=== PATIENT | male | born 1960 | race Caucasian/White ===

== ENCOUNTER 2017-11-24 23:02 | Inpatient (IN) | payer MEDICARE, OTHER ==
[~2017-11-24] VITALS: Ht 180.3 cm; Wt 106.3 kg
[2017-11-24] MEDS ORDERED: normal saline 1000ML IV soln IV ONE (23:25)
[2017-11-24] MEDS ORDERED: acetaminophen 325mg tablet PO ONE (23:30)
[2017-11-24] MEDS ORDERED: NO HOME MEDS (23:36)
[2017-11-25] VITALS (16 sets, daily range): BP systolic 107–159; BP diastolic 58–102
[2017-11-25 00:07] LABS: ALANINE AMINOTRANSFERASE 32 U/L (12-78); ALBUMIN 2.6 G/DL (3.4-5.0); ALBUMIN/GLOBULIN RATIO 0.7 (1.1-1.5); ALKALINE PHOSPHATASE 100 IU/L (46-116); ANION GAP 10 (8-16); ASPARTATE AMINO TRANSFERASE 23 U/L (10-37); BLOOD UREA NITROGEN 17 MG/DL (7-18); BUN/CREATININE RATIO 13.3 (5.4-32.0); CALCIUM 8.2 MG/DL (8.5-10.1); CHLORIDE 98 MMOL/L (99-107); CREATININE 1.28 MG/DL (0.60-1.10); GLUCOSE 219 MG/DL (70-104); MAGNESIUM 1.4 MG/DL (1.5-2.4); POTASSIUM 3.6 MMOL/L (3.5-5.1); SODIUM 134 MMOL/L (135-145); TOTAL CARBON DIOXIDE 26.3 MMOL/L (24-32); TOTAL PROTEIN 6.6 G/DL (6.4-8.2); eGFR 58 ML/MIN
[2017-11-25 00:09] LABS: INR 1.1 INR; PARTIAL THROMBOPLASTIN TIME 31 SECONDS (22-32); PROTHROMBIN TIME 11.4 SECONDS (9.0-12.0)
[2017-11-25 00:26] LABS: BASOPHILS # (AUTO) 0.1 X10'3 (0-0.2); EOSINOPHILS % (AUTO) 0 % (0-6); HEMATOCRIT 51.9 % (42.0-52.0); HEMOGLOBIN 17.8 g/dl (14.0-17.9); LYMPHOCYTES # (AUTO) 0.8 X10'3 (1.1-4.8); MEAN CORPUSCULAR HEMOGLOBIN 28.7 PG (27.0-31.0); MEAN CORPUSCULAR HGB CONC 34.2 % (33.0-36.5); MEAN CORPUSCULAR VOLUME 83.9 FL (78-98); MONOCYTES # (AUTO) 0.4 X10'3 (0-0.9); MONOCYTES % (AUTO) 2.9 % (2-12); NEUTROPHILS # (AUTO) 12.4 X10'3 (1.8-7.7); NEUTROPHILS % (AUTO) 90.1 % (42-75); PLATELET COUNT 199 X10'3 (140-440); RED BLOOD COUNT 6.19 X10'6 (4.70-6.10); RED CELL DISTRIBUTION WIDTH 12.6 % (11.5-14.5); WHITE BLOOD COUNT 13.7 X10'3 (4.5-11.0)
[2017-11-25] MEDS ORDERED: mag hydrox/Alum hydrox/simeth 30ml oral suspension PO PRN (00:45)
[2017-11-25] MEDS ORDERED: morphine 2 MG/ML inj. syringe IV PRN (00:45)
[2017-11-25] MEDS ORDERED: ondansetron/PF 4mg/2ml inj IV PRN ×2 (00:45→19:00)
[2017-11-25] MEDS ORDERED: MESSAGE TO PHARMACY PO ONE (00:50)
[2017-11-25] MEDS ORDERED: dextrose ORAL solution 15 GM/59 ML bottle PO PRN (00:50)
[2017-11-25] MEDS ORDERED: glucagon, human recombinant 1mg kit SUBCUT PRN (00:50)
[2017-11-25] MEDS ORDERED: dextrose 50%-water 50ml dispensing syringe IV PRN ×2 (00:50)
[2017-11-25 00:55] LABS: PLATELET ESTIMATE NORMAL; TOTAL CELLS COUNTED 100
[2017-11-25 01:14] LABS: HEMOGLOBIN A1C 9.4 % (4.5-6.2)
[2017-11-25] MEDS: normal saline 1000ml 1,000 ML IV SCH ×3 (01:26→13:55)
[2017-11-25] MEDS: piperacillin/tazo 3.375gm/50ml 50 ML IV SCH ×4 (02:18→21:26)
[2017-11-25] MEDS: insulin Lispro (HumaLOG) vial - multi-dose SQ SCH ×2 (07:48→12:12)
[2017-11-25] MEDS: morphine 2 MG/ML inj. syringe IV PRN ×2 (07:49→23:25)
[2017-11-25] MEDS ORDERED: magnesium Cl slow-release 64mg tablet PO PRN (09:45)
[2017-11-25] MEDS ORDERED: potassium Cl 20 mEq SR tablet PO PRN ×2 (09:45)
[2017-11-25] MEDS ORDERED: magnesium 4gm in 100ml NS 100 ML IV PRN (09:45)
[2017-11-25] MEDS ORDERED: potassium Cl 40MEQ/NS 500ml 500 ML IV PRN ×2 (09:45)
[2017-11-25 11:01] LABS: ALANINE AMINOTRANSFERASE 25 U/L (12-78); ALBUMIN 2.4 G/DL (3.4-5.0); ALBUMIN/GLOBULIN RATIO 0.6 (1.1-1.5); ALKALINE PHOSPHATASE 85 IU/L (46-116); ANION GAP 10 (8-16); ASPARTATE AMINO TRANSFERASE 18 U/L (10-37); BILIRUBIN,TOTAL 1.1 MG/DL (0.1-1.0); BLOOD UREA NITROGEN 14 MG/DL (7-18); CALCIUM 8.3 MG/DL (8.5-10.1); CHLORIDE 99 MMOL/L (99-107); CREATININE 1.17 MG/DL (0.60-1.10); GLUCOSE 207 MG/DL (70-104); MAGNESIUM 1.5 MG/DL (1.5-2.4); POTASSIUM 3.4 MMOL/L (3.5-5.1); SODIUM 134 MMOL/L (135-145); TOTAL CARBON DIOXIDE 25.2 MMOL/L (24-32); TOTAL PROTEIN 6.6 G/DL (6.4-8.2); eGFR 64 ML/MIN
[2017-11-25] MEDS ORDERED: acetaminophen 325mg tablet PO PRN (11:35)
[2017-11-25] MEDS ORDERED: ringers solution, lacted 1,000 ML IV ONE (11:35)
[2017-11-25] MEDS: acetaminophen 650mg rectal suppository RC PRN (12:28)
[2017-11-25] MEDS ORDERED: BUPIVAcaine/PF 2.5mg/ml (0.25%) 10ml vial ONE (12:54)
[2017-11-25] MEDS: heparin, porcine 5000 units/ml vial SQ SCH ×2 (14:00→21:25)
[2017-11-25] MEDS ORDERED: fentaNYL /PF 50mcg/ml 5ml ampule ONE (18:03)
[2017-11-25] MEDS ORDERED: sevoflurane 250ml liquid IH ONE (18:04)
[2017-11-25] MEDS ORDERED: rocuronium 10mg/ml inj IV ONE (18:05)
[2017-11-25] MEDS ORDERED: propofol inj 20 ML IV ONE (18:05)
[2017-11-25] MEDS ORDERED: ceFOXitin 1000 MG inj ONE ×2 (18:34)
[2017-11-25] MEDS ORDERED: ringers solution, lacted 1,000 ML IV SCH (18:57)
[2017-11-25] MEDS ORDERED: proCHLORperazine 10 MG/2 ml inj IV PRN (19:00)
[2017-11-25] MEDS ORDERED: meperidine/PF 25mg/ml syringe IV PRN ×3 (19:00)
[2017-11-25] MEDS ORDERED: morphine 4 MG/ML inj SYRINge IV PRN ×2 (19:00)
[2017-11-25] MEDS ORDERED: gentamicin 40 MG/1 ML inj ONE (19:12)
[2017-11-25] MEDS ORDERED: clindamycin phosphate 150mg/ml inj. ONE (19:12)
[2017-11-25] MEDS ORDERED: sugammadex 200mg/2ml injection IV ONE (19:24)
[2017-11-26] VITALS: BP 158/102
[2017-11-26 00:30] VITALS: BP 158/99
[2017-11-26] MEDS: piperacillin/tazo 3.375gm/50ml 50 ML IV SCH ×4 (02:33→19:43)
[2017-11-26] MEDS: normal saline 1000ml 1,000 ML IV SCH ×2 (02:34→15:10)
[2017-11-26 04:00] VITALS: BP 128/91
[2017-11-26] MEDS: morphine 2 MG/ML inj. syringe IV PRN ×4 (04:35→23:44)
[2017-11-26 05:58] LABS: BASOPHILS % (AUTO) 0.1 % (0-1); EOSINOPHILS # (AUTO) 0.1 X10'3 (0-0.9); EOSINOPHILS % (AUTO) 0.7 % (0-6); HEMATOCRIT 46.7 % (42.0-52.0); HEMOGLOBIN 16.2 g/dl (14.0-17.9); LYMPHOCYTES # (AUTO) 0.9 X10'3 (1.1-4.8); LYMPHOCYTES % (AUTO) 10.7 % (21-51); MEAN CORPUSCULAR HEMOGLOBIN 29.4 PG (27.0-31.0); MEAN CORPUSCULAR HGB CONC 34.8 % (33.0-36.5); MEAN CORPUSCULAR VOLUME 84.7 FL (78-98); MONOCYTES # (AUTO) 0.3 X10'3 (0-0.9); MONOCYTES % (AUTO) 3.8 % (2-12); NEUTROPHILS # (AUTO) 7.3 X10'3 (1.8-7.7); NEUTROPHILS % (AUTO) 84.7 % (42-75); PLATELET COUNT 167 X10'3 (140-440); RED BLOOD COUNT 5.51 X10'6 (4.70-6.10); RED CELL DISTRIBUTION WIDTH 12.6 % (11.5-14.5); WHITE BLOOD COUNT 8.6 X10'3 (4.5-11.0)
[2017-11-26 06:19] LABS: ALANINE AMINOTRANSFERASE 18 U/L (12-78); ALBUMIN 1.8 G/DL (3.4-5.0); ALBUMIN/GLOBULIN RATIO 0.4 (1.1-1.5); ALKALINE PHOSPHATASE 80 IU/L (46-116); ANION GAP 12 (8-16); ASPARTATE AMINO TRANSFERASE 24 U/L (10-37); BLOOD UREA NITROGEN 10 MG/DL (7-18); BUN/CREATININE RATIO 10.6 (5.4-32.0); CALCIUM 8.2 MG/DL (8.5-10.1); CHLORIDE 100 MMOL/L (99-107); CREATININE 0.94 MG/DL (0.60-1.10); GLUCOSE 192 MG/DL (70-104); SODIUM 136 MMOL/L (135-145); TOTAL CARBON DIOXIDE 23.7 MMOL/L (24-32); eGFR 82 ML/MIN
[2017-11-26 07:41] VITALS: BP 126/78
[2017-11-26] MEDS: heparin, porcine 5000 units/ml vial SQ SCH ×2 (07:58→19:44)
[2017-11-26] MEDS: acetaminophen 650mg rectal suppository RC PRN (07:58)
[2017-11-26 08:09] LABS: PLATELET ESTIMATE NORMAL; TOTAL CELLS COUNTED 100
[2017-11-26] MEDS: insulin Lispro (HumaLOG) vial - multi-dose SQ SCH ×2 (08:17→12:38)
[2017-11-26 12:00] VITALS: BP 115/76
[2017-11-26 18:00] VITALS: BP 138/87
[2017-11-26] MEDS: lactobacillus rhamnosus 10,000 MMU CELLS/CAPSULE PO SCH (19:43)
[2017-11-27] VITALS: BP 160/85
[2017-11-27] MEDS: piperacillin/tazo 3.375gm/50ml 50 ML IV SCH ×4 (01:54→19:05)
[2017-11-27] MEDS: normal saline 1000ml 1,000 ML IV SCH (01:54)
[2017-11-27] MEDS: morphine 2 MG/ML inj. syringe IV PRN ×5 (03:49→21:08)
[2017-11-27 04:00] VITALS: BP 148/94
[2017-11-27 06:15] LABS: BASOPHILS # (AUTO) 0.1 X10'3 (0-0.2); BASOPHILS % (AUTO) 1.1 % (0-1); EOSINOPHILS % (AUTO) 0.1 % (0-6); HEMATOCRIT 46.3 % (42.0-52.0); HEMOGLOBIN 15.9 g/dl (14.0-17.9); LYMPHOCYTES # (AUTO) 1.1 X10'3 (1.1-4.8); LYMPHOCYTES % (AUTO) 12.5 % (21-51); MEAN CORPUSCULAR HGB CONC 34.2 % (33.0-36.5); MEAN CORPUSCULAR VOLUME 84.8 FL (78-98); MEAN PLATELET VOLUME 8.8 FL (7.4-10.4); MONOCYTES # (AUTO) 0.5 X10'3 (0-0.9); NEUTROPHILS # (AUTO) 7.3 X10'3 (1.8-7.7); NEUTROPHILS % (AUTO) 80.3 % (42-75); PLATELET COUNT 194 X10'3 (140-440); RED BLOOD COUNT 5.46 X10'6 (4.70-6.10); RED CELL DISTRIBUTION WIDTH 12.7 % (11.5-14.5)
[2017-11-27 06:54] LABS: ALANINE AMINOTRANSFERASE 16 U/L (12-78); ALBUMIN 1.6 G/DL (3.4-5.0); ALBUMIN/GLOBULIN RATIO 0.4 (1.1-1.5); ALKALINE PHOSPHATASE 92 IU/L (46-116); ANION GAP 12 (8-16); ASPARTATE AMINO TRANSFERASE 18 U/L (10-37); BILIRUBIN,TOTAL 0.9 MG/DL (0.1-1.0); BLOOD UREA NITROGEN 13 MG/DL (7-18); BUN/CREATININE RATIO 15.5 (5.4-32.0); CALCIUM 8.4 MG/DL (8.5-10.1); CHLORIDE 102 MMOL/L (99-107); CREATININE 0.84 MG/DL (0.60-1.10); GLUCOSE 193 MG/DL (70-104); POTASSIUM 3.8 MMOL/L (3.5-5.1); SODIUM 138 MMOL/L (135-145); TOTAL PROTEIN 6.1 G/DL (6.4-8.2); eGFR > 90 ML/MIN
[2017-11-27 07:13] LABS: TOTAL CELLS COUNTED 100
[2017-11-27 07:15] VITALS: BP 154/101
[2017-11-27 07:15] LABS: PLATELET ESTIMATE NORMAL; TOXIC VACUOLATION FEW
[2017-11-27] MEDS: heparin, porcine 5000 units/ml vial SQ SCH ×2 (07:54→19:05)
[2017-11-27] MEDS: lactobacillus rhamnosus 10,000 MMU CELLS/CAPSULE PO SCH ×2 (07:54→19:05)
[2017-11-27] MEDS: insulin Lispro (HumaLOG) vial - multi-dose SQ SCH ×2 (08:03→17:53)
[2017-11-27 11:50] VITALS: BP 148/101
[2017-11-27] MEDS: potassium cl 20mEq in 1/2 NS 1,000 ML IV SCH ×2 (12:29→22:07)
[2017-11-27 19:00] VITALS: BP 153/109
[2017-11-27] MEDS: hydrALAZINE 20mg/ml inj. IV PRN (19:43)
[2017-11-28] VITALS: BP 155/93
[2017-11-28] MEDS: morphine 2 MG/ML inj. syringe IV PRN ×3 (01:06→11:37)
[2017-11-28] MEDS: piperacillin/tazo 3.375gm/50ml 50 ML IV SCH ×4 (01:11→20:06)
[2017-11-28] MEDS: potassium cl 20mEq in 1/2 NS 1,000 ML IV SCH ×2 (05:39→19:14)
[2017-11-28 06:06] LABS: BASOPHILS # (AUTO) 0.1 X10'3 (0-0.2); BASOPHILS % (AUTO) 0.7 % (0-1); EOSINOPHILS % (AUTO) 0.5 % (0-6); HEMATOCRIT 47.7 % (42.0-52.0); HEMOGLOBIN 15.9 g/dl (14.0-17.9); LYMPHOCYTES # (AUTO) 1.7 X10'3 (1.1-4.8); LYMPHOCYTES % (AUTO) 18.4 % (21-51); MEAN CORPUSCULAR HEMOGLOBIN 28.4 PG (27.0-31.0); MEAN CORPUSCULAR HGB CONC 33.2 % (33.0-36.5); MEAN CORPUSCULAR VOLUME 85.4 FL (78-98); MEAN PLATELET VOLUME 7.6 FL (7.4-10.4); MONOCYTES # (AUTO) 0.7 X10'3 (0-0.9); MONOCYTES % (AUTO) 7.7 % (2-12); NEUTROPHILS # (AUTO) 6.7 X10'3 (1.8-7.7); NEUTROPHILS % (AUTO) 72.7 % (42-75); PLATELET COUNT 286 X10'3 (140-440); RED BLOOD COUNT 5.59 X10'6 (4.70-6.10); RED CELL DISTRIBUTION WIDTH 13.8 % (11.5-14.5); WHITE BLOOD COUNT 9.3 X10'3 (4.5-11.0)
[2017-11-28 06:25] LABS: ALANINE AMINOTRANSFERASE 15 U/L (12-78); ALBUMIN 1.6 G/DL (3.4-5.0); ALBUMIN/GLOBULIN RATIO 0.4 (1.1-1.5); ALKALINE PHOSPHATASE 89 IU/L (46-116); ANION GAP 10 (8-16); ASPARTATE AMINO TRANSFERASE 15 U/L (10-37); BILIRUBIN,TOTAL 0.7 MG/DL (0.1-1.0); BLOOD UREA NITROGEN 12 MG/DL (7-18); CALCIUM 8.3 MG/DL (8.5-10.1); CHLORIDE 100 MMOL/L (99-107); CREATININE 0.92 MG/DL (0.60-1.10); GLUCOSE 213 MG/DL (70-104); POTASSIUM 3.6 MMOL/L (3.5-5.1); SODIUM 136 MMOL/L (135-145); TOTAL CARBON DIOXIDE 26.4 MMOL/L (24-32); eGFR 84 ML/MIN
[2017-11-28 07:10] VITALS: BP 167/104
[2017-11-28] MEDS: lactobacillus rhamnosus 10,000 MMU CELLS/CAPSULE PO SCH ×2 (07:27→20:06)
[2017-11-28] MEDS: heparin, porcine 5000 units/ml vial SQ SCH ×2 (07:28→20:07)
[2017-11-28] MEDS: insulin Lispro (HumaLOG) vial - multi-dose SQ SCH ×2 (10:22→13:20)
[2017-11-28 12:06] VITALS: BP 177/105
[2017-11-28] MEDS: hydrALAZINE 20mg/ml inj. IV PRN (14:55)
[2017-11-28 19:00] VITALS: BP 150/89
[2017-11-28] MEDS: HYDROcodone/acetaminophen 10/325mg tab PO PRN (19:35)
[2017-11-28] MEDS ORDERED: HYDROcodone/acetaminophen 10/325mg tab PO ONE (20:15)
[2017-11-29] VITALS: BP 146/86
[2017-11-29] MEDS: piperacillin/tazo 3.375gm/50ml 50 ML IV SCH ×4 (01:43→19:39)
[2017-11-29] MEDS: HYDROcodone/acetaminophen 10/325mg tab PO PRN ×4 (01:47→21:48)
[2017-11-29 05:18] LABS: BASOPHILS # (AUTO) 0.1 X10'3 (0-0.2); BASOPHILS % (AUTO) 0.8 % (0-1); EOSINOPHILS # (AUTO) 0.2 X10'3 (0-0.9); EOSINOPHILS % (AUTO) 2.3 % (0-6); HEMATOCRIT 46.5 % (42.0-52.0); HEMOGLOBIN 15.6 g/dl (14.0-17.9); LYMPHOCYTES # (AUTO) 2.1 X10'3 (1.1-4.8); LYMPHOCYTES % (AUTO) 20.8 % (21-51); MEAN CORPUSCULAR HEMOGLOBIN 28.6 PG (27.0-31.0); MEAN CORPUSCULAR HGB CONC 33.5 % (33.0-36.5); MEAN CORPUSCULAR VOLUME 85.5 FL (78-98); MEAN PLATELET VOLUME 7.3 FL (7.4-10.4); MONOCYTES # (AUTO) 0.6 X10'3 (0-0.9); MONOCYTES % (AUTO) 5.6 % (2-12); NEUTROPHILS # (AUTO) 7.2 X10'3 (1.8-7.7); NEUTROPHILS % (AUTO) 70.5 % (42-75); PLATELET COUNT 340 X10'3 (140-440); RED BLOOD COUNT 5.44 X10'6 (4.70-6.10); RED CELL DISTRIBUTION WIDTH 13.7 % (11.5-14.5); WHITE BLOOD COUNT 10.1 X10'3 (4.5-11.0)
[2017-11-29 05:32] LABS: ALANINE AMINOTRANSFERASE 14 U/L (12-78); ALBUMIN 1.5 G/DL (3.4-5.0); ALBUMIN/GLOBULIN RATIO 0.4 (1.1-1.5); ALKALINE PHOSPHATASE 80 IU/L (46-116); ANION GAP 7 (8-16); ASPARTATE AMINO TRANSFERASE 16 U/L (10-37); BILIRUBIN,TOTAL 0.6 MG/DL (0.1-1.0); BLOOD UREA NITROGEN 9 MG/DL (7-18); BUN/CREATININE RATIO 11.5 (5.4-32.0); CHLORIDE 101 MMOL/L (99-107); CREATININE 0.78 MG/DL (0.60-1.10); GLUCOSE 168 MG/DL (70-104); POTASSIUM 3.7 MMOL/L (3.5-5.1); SODIUM 137 MMOL/L (135-145); TOTAL CARBON DIOXIDE 28.7 MMOL/L (24-32); TOTAL PROTEIN 5.7 G/DL (6.4-8.2); eGFR > 90 ML/MIN
[2017-11-29] MEDS: potassium cl 20mEq in 1/2 NS 1,000 ML IV SCH ×3 (05:50→17:12)
[2017-11-29 06:57] VITALS: BP 120/74
[2017-11-29] MEDS: lactobacillus rhamnosus 10,000 MMU CELLS/CAPSULE PO SCH ×2 (07:50→19:45)
[2017-11-29] MEDS: heparin, porcine 5000 units/ml vial SQ SCH ×2 (07:53→19:45)
[2017-11-29] MEDS: insulin Lispro (HumaLOG) vial - multi-dose SQ SCH ×3 (08:56→18:51)
[2017-11-29] MEDS ORDERED: insulin glargine (Lantus) pen - multi-dose SQ ONE (11:05)
[2017-11-29 11:15] VITALS: BP 117/89
[2017-11-29 19:36] VITALS: BP 143/96
[2017-11-29] MEDS: insulin glargine (Lantus) pen - multi-dose SQ SCH (21:00)
[2017-11-30] VITALS: BP 108/76
[2017-11-30] MEDS: piperacillin/tazo 3.375gm/50ml 50 ML IV SCH ×4 (01:54→21:31)
[2017-11-30] MEDS: HYDROcodone/acetaminophen 10/325mg tab PO PRN ×4 (05:15→21:33)
[2017-11-30] MEDS: potassium cl 20mEq in 1/2 NS 1,000 ML IV SCH ×3 (05:15→21:29)
[2017-11-30 05:36] LABS: BASOPHILS # (AUTO) 0.2 X10'3 (0-0.2); BASOPHILS % (AUTO) 1.4 % (0-1); EOSINOPHILS # (AUTO) 0.2 X10'3 (0-0.9); EOSINOPHILS % (AUTO) 1.7 % (0-6); HEMATOCRIT 48.2 % (42.0-52.0); LYMPHOCYTES # (AUTO) 2.1 X10'3 (1.1-4.8); LYMPHOCYTES % (AUTO) 17.9 % (21-51); MEAN CORPUSCULAR HEMOGLOBIN 28.4 PG (27.0-31.0); MEAN CORPUSCULAR HGB CONC 33.3 % (33.0-36.5); MEAN CORPUSCULAR VOLUME 85.4 FL (78-98); MEAN PLATELET VOLUME 7.1 FL (7.4-10.4); MONOCYTES # (AUTO) 0.7 X10'3 (0-0.9); MONOCYTES % (AUTO) 6.4 % (2-12); NEUTROPHILS # (AUTO) 8.3 X10'3 (1.8-7.7); NEUTROPHILS % (AUTO) 72.6 % (42-75); PLATELET COUNT 391 X10'3 (140-440); RED BLOOD COUNT 5.64 X10'6 (4.70-6.10); WHITE BLOOD COUNT 11.5 X10'3 (4.5-11.0)
[2017-11-30 06:09] LABS: ALANINE AMINOTRANSFERASE 14 U/L (12-78); ALBUMIN 1.7 G/DL (3.4-5.0); ALBUMIN/GLOBULIN RATIO 0.4 (1.1-1.5); ALKALINE PHOSPHATASE 83 IU/L (46-116); ANION GAP 9 (8-16); ASPARTATE AMINO TRANSFERASE 22 U/L (10-37); BILIRUBIN,TOTAL 0.5 MG/DL (0.1-1.0); BLOOD UREA NITROGEN 7 MG/DL (7-18); BUN/CREATININE RATIO 9.2 (5.4-32.0); CALCIUM 8.4 MG/DL (8.5-10.1); CHLORIDE 100 MMOL/L (99-107); CREATININE 0.76 MG/DL (0.60-1.10); GLUCOSE 163 MG/DL (70-104); POTASSIUM 3.8 MMOL/L (3.5-5.1); SODIUM 136 MMOL/L (135-145); TOTAL CARBON DIOXIDE 26.9 MMOL/L (24-32); TOTAL PROTEIN 6.2 G/DL (6.4-8.2); eGFR > 90 ML/MIN
[2017-11-30 07:33] VITALS: BP 125/88
[2017-11-30] MEDS: lactobacillus rhamnosus 10,000 MMU CELLS/CAPSULE PO SCH ×2 (07:48→21:33)
[2017-11-30] MEDS: heparin, porcine 5000 units/ml vial SQ SCH ×2 (07:48→21:35)
[2017-11-30] MEDS: insulin Lispro (HumaLOG) vial - multi-dose SQ SCH ×3 (09:39→19:24)
[2017-11-30 11:19] VITALS: BP 148/96
[2017-11-30] MEDS: NUT.TX.IMPAIRED DIGEST FXN (Ensure Clear) 237 ML PO SCH (17:30)
[2017-11-30 19:00] VITALS: BP 128/74
[2017-11-30] MEDS: insulin glargine (Lantus) pen - multi-dose SQ SCH (22:57)
[2017-12-01] VITALS: BP 136/83
[2017-12-01] MEDS: piperacillin/tazo 3.375gm/50ml 50 ML IV SCH ×4 (01:53→21:16)
[2017-12-01 07:00] VITALS: BP 162/91
[2017-12-01] MEDS: NUT.TX.IMPAIRED DIGEST FXN (Ensure Clear) 237 ML PO SCH (07:30)
[2017-12-01] MEDS: lactobacillus rhamnosus 10,000 MMU CELLS/CAPSULE PO SCH ×2 (07:56→21:18)
[2017-12-01] MEDS: potassium cl 20mEq in 1/2 NS 1,000 ML IV SCH (07:57)
[2017-12-01] MEDS: heparin, porcine 5000 units/ml vial SQ SCH ×2 (07:58→21:18)
[2017-12-01] MEDS: HYDROcodone/acetaminophen 10/325mg tab PO PRN ×2 (08:00→19:06)
[2017-12-01] MEDS: insulin Lispro (HumaLOG) vial - multi-dose SQ SCH ×3 (10:21→19:09)
[2017-12-01 11:00] VITALS: BP 143/91
[2017-12-01 19:00] VITALS: BP 136/89
[2017-12-01] MEDS: insulin glargine (Lantus) pen - multi-dose SQ SCH (21:00)
[2017-12-02] VITALS: BP 147/94
[2017-12-02] MEDS: potassium cl 20mEq in 1/2 NS 1,000 ML IV SCH ×3 (01:45→23:06)
[2017-12-02] MEDS: piperacillin/tazo 3.375gm/50ml 50 ML IV SCH ×4 (02:32→20:03)
[2017-12-02] MEDS: HYDROcodone/acetaminophen 10/325mg tab PO PRN ×4 (02:34→19:03)
[2017-12-02 07:00] VITALS: BP 149/90
[2017-12-02] MEDS: NUT.TX.IMPAIRED DIGEST FXN (Ensure Clear) 237 ML PO SCH ×2 (07:30→17:21)
[2017-12-02] MEDS: heparin, porcine 5000 units/ml vial SQ SCH ×2 (08:25→20:03)
[2017-12-02] MEDS: lactobacillus rhamnosus 10,000 MMU CELLS/CAPSULE PO SCH ×2 (08:25→20:03)
[2017-12-02] MEDS: insulin Lispro (HumaLOG) vial - multi-dose SQ SCH ×2 (08:33→19:02)
[2017-12-02 11:00] VITALS: BP 129/84
[2017-12-02 19:00] VITALS: BP 131/70
[2017-12-02] MEDS: diatr meglu/diatrizoate 30ml oral sol.-(3 dose) bottle PO SCH (21:01)
[2017-12-02] MEDS: insulin glargine (Lantus) pen - multi-dose SQ SCH (21:04)
[2017-12-03] VITALS: BP 141/81
[2017-12-03] MEDS: piperacillin/tazo 3.375gm/50ml 50 ML IV SCH ×3 (01:52→13:26)
[2017-12-03] MEDS: HYDROcodone/acetaminophen 10/325mg tab PO PRN ×3 (03:33→20:53)
[2017-12-03 07:28] VITALS: BP 130/83
[2017-12-03] MEDS: NUT.TX.IMPAIRED DIGEST FXN (Ensure Clear) 237 ML PO SCH ×2 (07:30→17:30)
[2017-12-03] MEDS: diatr meglu/diatrizoate 30ml oral sol.-(3 dose) bottle PO SCH ×2 (07:37→09:14)
[2017-12-03] MEDS: lactobacillus rhamnosus 10,000 MMU CELLS/CAPSULE PO SCH ×2 (07:37→20:54)
[2017-12-03] MEDS: heparin, porcine 5000 units/ml vial SQ SCH ×2 (07:38→20:52)
[2017-12-03] MEDS: insulin Lispro (HumaLOG) vial - multi-dose SQ SCH ×2 (07:56→13:27)
[2017-12-03] MEDS: potassium cl 20mEq in 1/2 NS 1,000 ML IV SCH (08:43)
[2017-12-03] MEDS ORDERED: iohexol 300mg/ml 100ml inj. ONE (09:12)
[2017-12-03 11:49] VITALS: BP 130/93
[2017-12-03] MEDS: dextrose ORAL solution 15 GM/59 ML bottle PO PRN (17:19)
[2017-12-03 19:30] VITALS: BP 131/86
[2017-12-03] MEDS: insulin glargine (Lantus) pen - multi-dose SQ SCH (22:37)
[2017-12-04] VITALS: BP 134/76
[2017-12-04] MEDS: HYDROcodone/acetaminophen 10/325mg tab PO PRN ×4 (03:04→20:25)
[2017-12-04 04:00] VITALS: BP 132/80
[2017-12-04 07:00] VITALS: BP 129/86
[2017-12-04] MEDS: NUT.TX.IMPAIRED DIGEST FXN (Ensure Clear) 237 ML PO SCH (07:30)
[2017-12-04 07:38] LABS: BASOPHILS # (AUTO) 0.2 X10'3 (0-0.2); BASOPHILS % (AUTO) 1.7 % (0-1); EOSINOPHILS # (AUTO) 0.2 X10'3 (0-0.9); EOSINOPHILS % (AUTO) 2.2 % (0-6); HEMATOCRIT 46.4 % (42.0-52.0); HEMOGLOBIN 15.5 g/dl (14.0-17.9); LYMPHOCYTES # (AUTO) 2.2 X10'3 (1.1-4.8); LYMPHOCYTES % (AUTO) 19.1 % (21-51); MEAN CORPUSCULAR HEMOGLOBIN 28.4 PG (27.0-31.0); MEAN CORPUSCULAR HGB CONC 33.4 % (33.0-36.5); MEAN CORPUSCULAR VOLUME 84.9 FL (78-98); MONOCYTES # (AUTO) 0.5 X10'3 (0-0.9); MONOCYTES % (AUTO) 4.7 % (2-12); NEUTROPHILS # (AUTO) 8.3 X10'3 (1.8-7.7); NEUTROPHILS % (AUTO) 72.3 % (42-75); PLATELET COUNT 561 X10'3 (140-440); RED BLOOD COUNT 5.46 X10'6 (4.70-6.10); RED CELL DISTRIBUTION WIDTH 13.8 % (11.5-14.5); WHITE BLOOD COUNT 11.5 X10'3 (4.5-11.0)
[2017-12-04 07:48] LABS: ALBUMIN 2.1 G/DL (3.4-5.0); ANION GAP 9 (8-16); BLOOD UREA NITROGEN 11 MG/DL (7-18); BUN/CREATININE RATIO 13.1 (5.4-32.0); CALCIUM 8.9 MG/DL (8.5-10.1); CHLORIDE 102 MMOL/L (99-107); CREATININE 0.84 MG/DL (0.60-1.10); GLUCOSE 135 MG/DL (70-104); MAGNESIUM 1.9 MG/DL (1.5-2.4); POTASSIUM 4.2 MMOL/L (3.5-5.1); SODIUM 140 MMOL/L (135-145); TOTAL CARBON DIOXIDE 29.3 MMOL/L (24-32); eGFR > 90 ML/MIN
[2017-12-04] MEDS: lactobacillus rhamnosus 10,000 MMU CELLS/CAPSULE PO SCH ×2 (07:48→20:24)
[2017-12-04] MEDS: heparin, porcine 5000 units/ml vial SQ SCH ×2 (07:48→20:26)
[2017-12-04] MEDS: amox tr/potassium clavulanate 875/125mg TAB PO SCH ×2 (07:56→16:54)
[2017-12-04] MEDS: insulin Lispro (HumaLOG) vial - multi-dose SQ SCH ×3 (08:58→20:23)
[2017-12-04 11:57] VITALS: BP 117/75
[2017-12-04] MEDS: dextrose ORAL solution 15 GM/59 ML bottle PO PRN (16:57)
[2017-12-04 19:00] VITALS: BP 132/81
[2017-12-04] MEDS: insulin glargine (Lantus) pen - multi-dose SQ SCH (22:36)
[2017-12-05] VITALS: BP 117/75
[2017-12-05] MEDS: HYDROcodone/acetaminophen 10/325mg tab PO PRN (05:16)
[2017-12-05 07:45] VITALS: BP 120/92
[2017-12-05] MEDS: lactobacillus rhamnosus 10,000 MMU CELLS/CAPSULE PO SCH (09:02)
[2017-12-05] MEDS: heparin, porcine 5000 units/ml vial SQ SCH (09:03)
[2017-12-05] MEDS: amox tr/potassium clavulanate 875/125mg TAB PO SCH (09:05)
[2017-12-05] MEDS: insulin Lispro (HumaLOG) vial - multi-dose SQ SCH ×2 (09:13→13:27)
[2017-12-05 14:55] VITALS: BP 107/80
[2017-12-05] MEDS ORDERED: ACET-2144 PO (15:01)
[2017-12-05] MEDS ORDERED: IBUP-1985 PO (15:05)
== END 2017-12-05 15:45 | disposition home health service (06) | DRG 853 ==
LOC: ER 23:03 → ED HOLD 11-25 00:45 → SUR 3N 11-25 01:00 → PACU 11-25 19:02 → SUR 3N 11-25 20:40
PROVIDERS: ADMIT Internal Medicine; ATTEND Family Medicine
PROC: 0WJG4ZZ Inspection of Peritoneal Cavity, Percutaneous Endoscopic Approach (ICD-10-PCS; 2017-11-25)
PROC: 0WQF0ZZ Repair Abdominal Wall, Open Approach (ICD-10-PCS; 2017-11-25)
PROC: 0DTJ0ZZ Resection of Appendix, Open Approach (ICD-10-PCS; principal; 2017-11-25 18:04)
PROC: BW211ZZ Computerized Tomography (CT Scan) of Abdomen and Pelvis using Low Osmolar Contrast (ICD-10-PCS; 2017-12-03)
DX: A41.9 Sepsis, unspecified organism (principal); K35.32 Acute appendicitis with perforation, localized peritonitis, and gangrene, without abscess; K56.7 Ileus, unspecified; F15.10 Other stimulant abuse, uncomplicated; E11.65 Type 2 diabetes mellitus with hyperglycemia; G89.29 Other chronic pain; F17.210 Nicotine dependence, cigarettes, uncomplicated; J44.9 Chronic obstructive pulmonary disease, unspecified; K42.9 Umbilical hernia without obstruction or gangrene; L84 Corns and callosities; N21.0 Calculus in bladder; Z53.31 Laparoscopic surgical procedure converted to open procedure; Z71.51 Drug abuse counseling and surveillance of drug abuser
CPT/HCPCS: 36415; 71045; 74018; 74177; 80048; 80053; 82948; 83036; 83605; 83735; 83880; 84145; 85025; 85610; 85730; 87040; 87070; 88304; 93005; 99285; A4315; A6251; A6255; A6266; A7000; C9399; J0360; J0694; J1580; J1644; J1815; J2175; J2270; J2405; J2543; J2704; J3010; J3480; J3490; J7030; J7120; Q9963; Q9967

== ENCOUNTER 2021-12-23 03:56 | Emergency (ER) | payer MEDICARE, MEDICAID ==
[~2021-12-23] VITALS: Ht 180.3 cm; Wt 104.5 kg
[~2021-12-23 03:56] MED LIST: IBUP-1985 PO; NO HOME MEDS
[2021-12-23 04:06] VITALS: BP 185/98
== END 2021-12-23 06:54 | disposition left against medical advice (07) ==
LOC: ER 03:56
DX: R21 Rash and other nonspecific skin eruption (principal); Z53.21 Procedure and treatment not carried out due to patient leaving prior to being seen by health care provider

== ENCOUNTER 2024-08-27 19:50 | Inpatient (IN) | payer MEDICARE, MEDICAID ==
[~2024-08-27] VITALS: Ht 180.3 cm; Wt 87.0 kg
--- NOTE | 2024-08-27 20:02 | ELECTROCARDIOGRAPH REPORT ---
[facility] Test Date: 2024-08-27 Test Time: 19:58:49 Pat Name: CHELO BURGSO Department: EMERGENCY ROOM Room: Gender: M Supervisor [employer]: SANDRO : 1960 Requested By: BELGICA JUSTICE Order Number: [id number] Reading MD: Measurements Intervals [place] Rate: 89 P: 0 [place]: 0 QRS: 28 QRSD: 95 T: 29 QT: 394 QTc: 480 Interpretive Statements Atrial fibrillation Anterior infarct, old Borderline repolarization abnormality Please click the below link to view image of tracing.
--- NOTE | 2024-08-27 20:11 | Physician Documentation ---
History of Present Illness Chief Complaint: Abdominal Pain Stated Complaint: ABD PAIN Time Seen by MD: 19:57 Primary Medical Doctor: NONE Source: patient, EMS Mode of Arrival: EMS Exam Limitations: no limitations HPI 64-year-old male with generalized abdominal pain worsening over the past couple of days causing intermittent nausea without vomiting. Patient denies any fevers normal bowel movements. Patient does have history of multiple hernias being repaired as well as an appendectomy which caused chronic abdominal pain. Patient did have a primary care provider but has not seen in about a year. Patient had medications that he was on but noticed when he took some of the medications together they could cause side effects stopped taking medications in which case the primary care provider was not happy with an he has not been back since this was about a year and half ago. Patient lives at home with . Patient states that is some of his abdominal pain is alleviated with bowel movements but not every time. Medication Reconciliation Allergies: Coded Allergies: No Known Drug Allergies (Verified Allergy, Unknown, 08/27/24) Scheduled Ibuprofen (Ibuprofen), 1 TAB PO Q6H Miscellaneous Medications Home Med List (No Home Medications), (Reported) Past Medical History Past Medical History: *CARDIOVASCULAR*, *GI/HEPATOBILIARY*, Hernia, Diabetes Drug Use: methamphetamine Lives In: Home Occupation: retired Review of Systems All Other Systems at this time: Reviewed and Negative Gastrointestinal: Reports: see HPI, abdominal pain, nausea Physical Exam Vital Signs: RN Vital Signs have been reviewed: Yes, Temperature: 97.6, Source: Oral, Heart Rate: 87, Respiratory Rate: 14, BP: 139/93, Pulse Oximetry: 96, Weight: 87.000 Oxygen Flow Rate: 0 Physical Exam General: Alert, no apparent distress. HEENT: PERRL, EOMI, no injection, moist mucous membranes. Baseline asymmetry to mouth Neck: Full range of motion. Respiratory: Lungs clear, no respiratory distress. Chest: No accessory muscle use. Cardiovascular: Regular rate and rhythm, no murmurs. Gastrointestinal: Soft, nondistended bowel sounds present generalized abdominal tenderness does appear more near the umbilicus. No flank pain. Old midline abdominal scar Extremities: Normal range of motion, no deformity. Neurologic: Oriented x4. Psychiatric: Normal mood and affect. Skin: Normal color, warm and dry. No edema, no ecchymosis. Progress Results/Orders Results/Orders Orders - ELIZABETH FELDER NP Ct Abdomen Pelvis (08/27/24 19:57) Hs Troponin I W Calculations (08/27/24 19:57) BMP (08/27/24 19:57) Monitor (08/27/24 19:57) Nothing By Mouth (08/28/24 Dinner) Completed Orders - ELIZABETH FELDER NP Electrocardiogram (08/27/24 19:57) Vital Signs 08/27/24 19:53 Temp 97.6 Pulse 87 Resp 14 B/P (MAP) 139/93 Pulse Ox 96 O2 Flow Rate 0 Medical Decision Making Findings Due to nonspecific abdominal pain which has been chronic but increasing over the past couple of days of nausea. CT of abdomen as well as labs AFib noted by EMT EKG completed. Patient denies any chest pain or shortness of breath. CT shows an enlarged prostate and some bladder wall thickening awaiting urinalysis to evaluate for infection no obvious abdominal process noted to support patient's subjective generalized abdominal pain. Patient has had chronic pain. Hemoglobin 16 no elevation in white count. Elevated BUN and creatinine GFR 40 indicating some acute kidney injury with generalized abdominal pain bladder wall thickening an enlarged prostate fluids ordered Differential Dx:Considerations: Include: Angina/MD, Aortic dissection, Bowel obstruction, Cholelithasis, Constipation, Diverticular disease, Gastroenteritis, Inflammatory BD, Pancreatitis, Urinary tract infection Departure Disposition: ADMITTED INPATIENT Impression: Primary Impression: Acute kidney injury Additional Impressions: Dehydration Nausea Condition: Fair Referrals: NO PRIMARY CARE PROVIDER (PCP) Education Educated: Patient Educated regarding: diagnosis, treatment, need for follow up Signature Scribe Signature: No scribe Attestation: The note accurately reflects work and decisions made by me.Elizabeth Felder - MATERIALS MANAGEMENT MANAGER 08/27/24 20:12 ELIZABETH FELDER COMMERCIAL SUBCONTRACTOR Aug 27, 2024 20:11
--- NOTE | 2024-08-27 20:56 | RADIOLOGY REPORT ---
Exam: CT CT ABDOMEN PELVIS History: Abdominal Pain Comparison Study: None TECHNIQUE: Multidetector CT of the abdomen and pelvis was performed from lung bases to pubic symphysi s. Imaging was performed without IV contrast. Axial, coronal, and sagittal multiplanar reformats were obtained from the axial data set by the technologist. RADIATION DOSE: CTDI vol 21.1 mGy. DLP 1108. 98 mGy.cm Findings: Limited evaluation of the solid organs in the absence of IV contrast. Liver: Unremarkable. Spleen: Unremarkable. Pancreas: Unremarkable. Gallbladder: Unremarkable. Adrenals: 2.4 cm fat containing right adrenal lesion. Kidneys: Unremarkable. Pelvic Viscera: Mild prostatomegaly with indentation upon the posterior aspect of the urinary bladder . Mild wall thickening of the urinary bladder. Vasculature: Moderate aortoiliac atherosclerosis. Retroperitoneum: Unremarkable. Bowel: No bowel obstruction. Probable prior appendectomy. Musculoskeletal: Degenerative changes of the thoracolumbar spine. Soft tissues: Small ventral fat containing abdominal wall hernias. Lungs: The lung bases are clear. Impression: 1. Nonspecific mild wall thickening of the urinary bladder, cystitis cannot be excluded in the [facility] clinical setting. 2. Additional findings as detailed.
[2024-08-27 21:08] LABS: MEAN PLATELET VOLUME 8.2 FL (7.4-10.4); RED CELL DISTRIBUTION WIDTH 14.3 % (11.5-14.5)
[2024-08-27 21:39] LABS: CREATININE 1.70 MG/DL (0.60-1.10); TOTAL CARBON DIOXIDE 22.4 MMOL/L (24-32); eCRCL 46 ML/MIN; eGFR 41 ML/MIN
[2024-08-27 22:22] LABS: LEUKOCYTE ESTERASE ,URINE NEGATIVE (Neg); NITRITES, URINE NEGATIVE (Neg); OCCULT BLOOD,URINE NEGATIVE (Neg)
[2024-08-27] MEDS ORDERED: ondansetron/PF 4mg/2ml inj IV PRN (22:30)
[2024-08-27] MEDS ORDERED: potassium Cl 20 mEq SR tablet PO PRN ×2 (22:30)
[2024-08-27] MEDS ORDERED: HYDROcodone/acetaminophen 5mg/325mg tablet PO PRN (22:30)
[2024-08-27] MEDS ORDERED: potassium Cl 40MEQ/1/2NS 520ml 520 ML IV PRN (22:30)
[2024-08-27] MEDS ORDERED: magnesium sulf-water 4G/100mL 100 ML IV PRN (22:30)
[2024-08-27] MEDS ORDERED: mag hydrox/Alum hydrox/simeth 30ml oral suspension PO PRN (22:30)
[2024-08-27] MEDS ORDERED: magnesium sulf-water 2g/50mL 50 ML IV PRN (22:30)
[2024-08-27] MEDS ORDERED: magnesium Cl slow-release 64mg tablet PO PRN (22:30)
[2024-08-27 22:31] LABS: UA COLLECTION TYPE NON-SPECIFIED
[2024-08-27] MEDS: normal saline 1000ml 1,000 ML IV SCH (22:56)
[2024-08-27] MEDS: normal saline 1000ML IV soln IVB ONE (22:56)
--- NOTE | 2024-08-27 23:04 | HISTORY AND PHYSICAL-Residence ---
History & Physical Providers to CC Resident Creating Document: ROBYN HERNANDEZ, RES ~ History of Present Illness Primary Medical Doctor: NONE Reason for Admit\Complaint: Abdominal pain History of Present Illness This is a 64-year-old male with history of unspecified psychiatric disorder in the past presents to the ER with a chief complaint nausea, abdominal pain. Patient states that he has been having chronic nausea and abdominal pain since the last three years which got worse today. He rates his abdominal pain is 7/10 in the lower quadrant. He denies any burning in the urine or increased frequency of micturition. He has been dehydrated since the last one week due to the heat and was not drinking enough water nor has air conditioning at home. He denies any history of kidney disease, does not have a PCP. He has been evaluated for his nausea and abdominal pain three years ago when he was told at a secondary to a psychiatric problem. He denies fever, pain elsewhere, any other complaints. He endorses smoking methamphetamine, few months ago, quit now. He smokes about half pack now since two years but previously used to smoke one pack per day before that. He used to be a heavy alcohol user but quit three years ago. Allergies: Coded Allergies: No Known Drug Allergies (Verified Allergy, Unknown, 08/27/24) Home Medications Home Medications Active Ibuprofen 600 Mg Tablet 1 Tab PO Q6H Reported No Home Medications (Home Med List) Each Past Medical History Past Medical History Unspecified Psychiatric problems Past Surgical History Surgical History Comment Appendicectomy Past Social History Social History Comment He endorses smoking meth past few months ago, quit now. He smokes about half pack now since two years but previously used to smoke one pack per day before that. He used to be a heavy alcohol user but quit three years ago. Drug Use: Methamphetamine Lives In: Home Occupation: retired ROS All Other Systems: Reviewed and Negative ROS Reviewed in full and negative except for the pertinent positives in HPI Gastrointestinal: Reports: see HPI, abdominal pain, nausea Exam Vitals: Vital Signs Date Time Temp Pulse Resp B/P (MAP) Pulse Ox O2 Delivery O2 Flow Rate FiO2 08/27/24 20:30 92 18 130/100 (110) 97 0 08/27/24 19:53 97.6 General: General: well developed, well nourished. Awake , alert, and oriented x4, resting comfortably in the bed, in no acute distress . HEENT: Atraumatic, normocephalic, EOMI, anicteric sclera B; pink conjunctiva; PERRLA, normal oropharynx, moist oral and nasal mucosa. Tympanic membrane , nose , throat clear. Neck: Trachea midline. Supple, full range of motion, no JVD, bruit , hepatojugular reflex , lymphadenopathy or masses, or other lesions Cardiac: Regular rhythm, regular rate no murmurs, rubs, or gallops. Normal S1 and S2, no S3 noticed. PMI is normal. Respiratory: Equal breath sounds bilaterally, no tachypnea; lungs clear to auscultation bilaterally, no wheezing ,rub or rales, or crackles. Chest wall is symmetric and without deformity. No signs of trauma. Chest wall is nontender. No signs of respiratory distress. Resonance is normal upon percussion bilaterally. Gastrointestinal: Abdomen symmetric, non-distended, soft, tenderness to palpation in the lower abdomen, normal bowel sounds x4 quadrant, normoactive, no hepatosplenomegaly , no masses , no bruit, no flank pain bilaterally. No voluntary guarding, rebound, or rigidity. No tenderness to percussion. No pulsatile masses. Equal femoral pulses. No Jenkins's sign or McBurney point tenderness. Back; no CVA tenderness bilaterally, no deformities. Neck and back are without deformity as well. No tenderness noted on palpation of the spinous processes. Spinous processes are midline. Cervical, thoracic, and lumbar paraspinal muscles are not tender and are without spasm. : normal external genitalia, without lesions, swelling, masses or tenderness. Musculoskeletal: Extremities, normal range of motion, non-tender, muscle strength 5/5 x 4. Negative Homans signs bilaterally on lower extremity. Distal pulses full symmetrical, no clubbing, cyanosis , edema. Neurological: Speech is clear, alert, and oriented x 4. No motor or sensory deficit, deep tendon reflexes normal, cerebellar intact. Cranial nerves II-XII intact. Psych: Alert and or appropriate, normal affect. Vascular: Good distal pulses, which are equal x4; capillary refill less than 2 seconds. Skin: Warm, dry, no pallor, no rash or petechiae. Diagnostic Data Last Recorded Lab Results: 08/27/24210008/27/242100 Advance Care Planning Advanced Care plannin - 30 Minutes (I spent a total of 17 minutes on reviewing various resuscitative measures/ ACP with the patient at the time of admission. The patient has decided on a full code status) Additional Plan Erythrocytosis/polycythemia Differentials include polycythemia vera, paraneoplastic syndrome, severe dehydration Hemoglobin 18.7 with hematocrit of 55 and increased RBC mass. Follow up with serum erythropoietin to differentiate primary versus secondary polycythemia. Follow up with CBC after administering IV fluid. Patient may need outpatient follow up with gear tester if polycythemia does not improve with fluid. FRANCIS, secondary to renal tubular stasis Likely prerenal secondary to severe dehydration CT abdomen does not show any evidence of postrenal FRANCIS. Follow up with the urine electrolytes, osmolality. Started on IV fluids NS at the rate of 100 mL/hour Hyperglycemia Blood sugar 201. Follow up with the A1c. Start hyperglycemia protocol if blood sugars remain high throughout. Unspecified psychiatric disorder Mild protein calorie malnutrition Recommend outpatient follow up with psychiatrist. Albumin 3.1. Ensure t.i.d. 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 Attestation of HP only, care immediately directed to hospitalist team - Volume depletion. Needs IVF then recheck CBC. - IF hgb >14 at that time then can work up for primary and secondary causes - Outpt urology eval - PT needs social work consult for safety at home, no air conditioning. This is really reason he is here Patient seen through remote audiovisual assessment through HIPAA compliant setup. All labs, flowsheets, and images reviewed. Date of Service: Aug 27, 2024 Billing Provider: NIURKA MAZA Jr. DO ROBYN HERNANDEZ, RES Aug 27, 2024 23:04 NIURKA MAZA Jr. DO Aug 28, 2024 01:54
[2024-08-27 23:43] LABS: CREATININE,URINE RANDOM 126.0 MG/DL; TOTAL PROTEIN,URINE RANDOM 15.7 MG/DL
[2024-08-27 23:46] LABS: OSMOLALITY UA 695.0 MOSM/K (50-1400)
[2024-08-27 23:48] LABS: APTT 29 SECONDS (22-32); INR 1.1 INR
[2024-08-27 23:57] LABS: PRO BRAIN NATRIURETIC PEPTIDE 371 PG/ML (0-125)
[2024-08-28 00:40] VITALS: RESP 16; O2SAT 96
[2024-08-28 02:31] LABS: UA EOSINOPHILS NO EOS /HPF
[2024-08-28 06:00] VITALS: BP 135/79; PULSE 86; RESP 16; TEMP 97.6; O2SAT 95
[2024-08-28 06:05] LABS: MEAN PLATELET VOLUME 8.8 FL (7.4-10.4); RED CELL DISTRIBUTION WIDTH 14.5 % (11.5-14.5)
[2024-08-28 06:09] LABS: CHOL/HDL RATIO 5.3 (0.00-4.99); CREATININE 1.15 MG/DL (0.60-1.10); LDL CHOLESTEROL 103 MG/DL (50-100); TOTAL CARBON DIOXIDE 22.0 MMOL/L (24-32); eCRCL 67 ML/MIN; eGFR 64 ML/MIN
[2024-08-28] MEDS: K and/or MAG REPLACEMENT MC SCH (07:06)
[2024-08-28] MEDS: lactose-reduced food (Ensure Enlive) - 237ml bottle PO SCH (08:00)
[2024-08-28] MEDS: heparin, porcine 5000 units/ml vial SQ SCH (09:05)
[2024-08-28] MEDS: docusate sod 100mg capsule PO SCH (09:05)
[2024-08-28 10:00] VITALS: BP 142/84; PULSE 77; RESP 17; TEMP 98.1; O2SAT 97
[2024-08-28] MEDS ORDERED: dextrose 50%-water 50ml dispensing syringe IV PRN ×2 (13:05)
[2024-08-28] MEDS ORDERED: DEXTROSE 15 GM of carb/4 tabs (each vial/BOTTLE has 4 tablets) PO PRN ×2 (13:05)
[2024-08-28] MEDS ORDERED: glucagon, human recombinant 1mg kit SUBCUT PRN (13:05)
[2024-08-28] MEDS: INSULIN LISPRO 100 UNIT/ML INSULN.PEN MULTI-DOSE SQ SCH ×2 (15:27→17:00)
[2024-08-28 18:00] VITALS: BP 122/70; PULSE 74; RESP 18; TEMP 98.4; O2SAT 97
--- NOTE | 2024-08-28 20:06 | PROGRESS NOTE ---
Daily Progress Note Providers to CC ~ Antibiotic Timeout Antibiotic Ordered?: No Subjective Patient has a small bowel movement and overall feels significantly improved and was asking to be discharged I informed him we would not discharge him today but maybe tomorrow Objective Vital Signs Date Time Temp Pulse Resp B/P (MAP) Pulse Ox O2 Delivery O2 Flow Rate FiO2 08/28/24 10:00 98.1 77 17 142/84 (103) 97 Room Air 08/28/24 08:00 0.0 Result Diagram: 08/28/2443008/28/24430 Gen. No acute distress alert and oriented 4 Lungs clear to ascultation bilaterally, no wheezes rales or rhonchi appreciated Heart normal sinus rhythm no murmurs rubs or clicks noted Abdomen soft nontender bowel sounds are normoactive Lower extremities no clubbing cyanosis, nor edema appreciated bilaterally Coagulation Studies Laboratory Tests Test 08/27/24 20:57 Prothrombin Time 11.4 SECONDS (9.0-12.0) INR International Normalized Ratio 1.1 INR Activated Partial Thromboplast Time 29 SECONDS (22-32) Coagulation Comments Problem\Assessment\Plan Erythrocytosis/polycythemia Differentials include polycythemia vera, paraneoplastic syndrome, severe dehydration Hemoglobin 18.7 with hematocrit of 55 and increased RBC mass. Improved with IV fluid resuscitation FRANCIS, possibly secondary to renal tubular stasis Likely prerenal secondary to severe dehydration CT abdomen does not show any evidence of postrenal FRANCIS. Follow up with the urine electrolytes, osmolality. Started on IV fluids NS at the rate of 100 mL/hour Improving Rtm-pdakjja-dujijxuyw diabetes mellitus Blood sugar 201. Follow up with the A1c. On the hyper and hypoglycemic protocol Unspecified psychiatric disorder Mild protein calorie malnutrition Recommend outpatient follow up with psychiatrist. Albumin 3.1. Ensure t.i.d. Code Status: Full code DVT Prophylaxis: Heparin Analgesia/Sedation: [place] PRN Lines/Tubes: PIV Gi Prophylaxis: None Nutrition: Regular diet Date of Service: Aug 28, 2024 Billing Provider: GRIFFIN ARTIS DO Common Visit Codes: [id number] INP/OBS CARE(HIGH) GRIFFIN ARTIS DO Aug 28, 2024 20:06
[2024-08-28] MEDS: diatr meglu/diatrizoate 30ml oral sol.-(3 dose) bottle PO SCH (20:46)
[2024-08-28 22:00] VITALS: BP 136/71; PULSE 76; RESP 16; TEMP 98.4; O2SAT 99
[2024-08-29] MEDS: normal saline 1000ml 1,000 ML IV ONE (01:20)
[2024-08-29 04:25] LABS: MEAN PLATELET VOLUME 8.4 FL (7.4-10.4); RED CELL DISTRIBUTION WIDTH 14.2 % (11.5-14.5)
[2024-08-29 04:47] LABS: CREATININE 1.29 MG/DL (0.60-1.10); TOTAL CARBON DIOXIDE 27.0 MMOL/L (24-32); eCRCL 60 ML/MIN; eGFR 56 ML/MIN
[2024-08-29 06:00] VITALS: BP 140/80; PULSE 64; RESP 14; TEMP 97.9; O2SAT 97
--- NOTE | 2024-08-29 09:18 | RADIOLOGY REPORT ---
CT CT ABDOMEN PELVIS W/ ORAL CONTRAST INDICATION: Generalized significant abdominal pain EXAM DATE: 08/29/2024 08:50 AM COMPARISON: CT CT ABDOMEN PELVIS on DOS: 08/27/24 RADIATION DOSE: CTDIvol: 22 mGy, DLP: 1283 mGy*cm PROCEDURE: Helical CT images were obtained of the abdomen and pelvis without IV contrast Sagittal and coronal reconstructions are provided. ORAL CONTRAST: yes ADDITIONAL IMAGES / REFORMATS: None All CT scans at this medical facility are performed using dose modulation techniques as appropriate to a per formed exam including the following: Automated exposure control was utilized; adjustment of the MA an d/or KV according to patient size; and use of iterative reconstruction technique. FINDINGS: LUNG BASE: Normal. LIVER: Normal. GALLBLADDER AND BILIARY TREE: No calcified gallstones. Normal caliber wall. No intra- or extrahepatic biliary ductal dilation. PANCREAS: Normal. SPLEEN: Normal. BOWEL: Oral contrast reaches the colon. No bowel dilation. ADRENALS: 2.2 cm lipid rich right adenoma. KIDNEYS AND URETER: Normal. BLADDER: Small bladder stones. Similar posterior bladder wall thickening. REPRODUCTIVE ORGANS: Normal. LYMPH NODES:No lymphadenopathy. PERITONEUM: No ascites or free air. No other fluid collection. VESSELS: Scattered atherosclerotic calcifications are noted. RETROPERITONEUM: Normal. ABDOMINAL WALL: Complex ventral abdominal wall hernia with fat stranding, similar. BONES: Scattered osseous degenerative changes are noted. IMPRESSION: No acute intraabdominal abnormality. Complex ventral abdominal wall hernia with fat stranding, similar. Small bladder stones. No hydronephrosis.
[2024-08-29 10:00] VITALS: BP 140/99; PULSE 64; RESP 16; TEMP 98; O2SAT 98
[2024-08-29] MEDS: magnesium citrate 296ml oral solution PO ONE (14:14)
[2024-08-29 18:00] VITALS: BP 147/83; PULSE 79; RESP 17; TEMP 97.9; O2SAT 97
--- NOTE | 2024-08-29 21:23 | PROGRESS NOTE ---
Progress Note ID Providers to CC ~ Progress Note Progress Note: pt seen-robo repair ELIZABETH BLANCO MD Aug 29, 2024 21:23
[2024-08-29 22:00] VITALS: BP 178/96; PULSE 83; RESP 22; TEMP 98.2; O2SAT 96
[2024-08-29] MEDS: diphenhydrAMINE 25 MG/10 ML UD oral solution PO PRN (22:05)
--- NOTE | 2024-08-29 23:48 | PROGRESS NOTE ---
Daily Progress Note Providers to CC ~ Antibiotic Timeout Antibiotic Ordered?: Yes Subjective The patient has a complex ventral abdominal wall hernia with fat stranding discussed this findings with surgeon who is taking the patient to the OR in two days Objective Vital Signs Date Time Temp Pulse Resp B/P (MAP) Pulse Ox O2 Delivery O2 Flow Rate FiO2 08/29/24 10:00 98.0 64 16 140/99 (113) 98 Room Air 08/29/24 08:00 0.0 Result Diagram: 08/29/2440608/29/24406 Gen. No acute distress alert and oriented 4 Lungs clear to ascultation bilaterally, no wheezes rales or rhonchi appreciated Heart normal sinus rhythm no murmurs rubs or clicks noted Abdomen soft nontender bowel sounds are normoactive Lower extremities no clubbing cyanosis, nor edema appreciated bilaterally Coagulation Studies Laboratory Tests Test 08/27/24 20:57 Prothrombin Time 11.4 SECONDS (9.0-12.0) INR International Normalized Ratio 1.1 INR Activated Partial Thromboplast Time 29 SECONDS (22-32) Coagulation Comments Problem\Assessment\Plan complex ventral abdominal wall hernia with fat stranding 08/29 discussed this findings with surgeon who is taking the patient to the OR in two days Erythrocytosis/polycythemia Differentials include polycythemia vera, paraneoplastic syndrome, severe dehydration Hemoglobin 18.7 with hematocrit of 55 and increased RBC mass. Improved with IV fluid resuscitation FRANCIS, possibly secondary to renal tubular stasis Likely prerenal secondary to severe dehydration CT abdomen does not show any evidence of postrenal FRANCIS. Follow up with the urine electrolytes, osmolality. Started on IV fluids NS at the rate of 100 mL/hour Improving Oex-icmizjh-qabrucbih diabetes mellitus Blood sugar 201. Follow up with the A1c. On the hyper and hypoglycemic protocol Unspecified psychiatric disorder Mild protein calorie malnutrition Recommend outpatient follow up with psychiatrist. Albumin 3.1. Ensure t.i.d. Code Status: Full code DVT Prophylaxis: Heparin Analgesia/Sedation: [place] PRN Lines/Tubes: PIV Gi Prophylaxis: None Nutrition: Regular diet Date of Service: Aug 29, 2024 Billing Provider: GRIFFIN ARTIS DO Common Visit Codes: [id number] INP/OBS CARE(HIGH) GRIFFIN ARTIS DO Aug 29, 2024 23:48
[2024-08-30 02:48] VITALS: BP 119/73; PULSE 63; RESP 18; O2SAT 97
[2024-08-30 04:25] LABS: MEAN PLATELET VOLUME 7.9 FL (7.4-10.4); RED CELL DISTRIBUTION WIDTH 14.0 % (11.5-14.5)
[2024-08-30 04:51] LABS: CREATININE 1.00 MG/DL (0.60-1.10); TOTAL CARBON DIOXIDE 27.1 MMOL/L (24-32); eCRCL 77 ML/MIN; eGFR 75 ML/MIN
[2024-08-30] MEDS: normal saline 1000ML IV soln IVB ONE (04:56)
[2024-08-30 06:00] VITALS: BP 159/101; PULSE 83; RESP 23; TEMP 98.4; O2SAT 96
[2024-08-30 10:00] VITALS: BP 158/95; PULSE 70; RESP 17; TEMP 97.4; O2SAT 96
[2024-08-30 18:00] VITALS: BP 172/110; PULSE 55; RESP 17; TEMP 97.3; O2SAT 98
--- NOTE | 2024-08-30 19:59 | PROGRESS NOTE ---
Progress Note ID Providers to CC ~ Progress Note Progress Note: surgery ELIZABETH BLANCO MD Aug 30, 2024 19:59
--- NOTE | 2024-08-30 19:59 | PROGRESS NOTE ---
Daily Progress Note Providers to CC ~ Antibiotic Timeout Antibiotic Ordered?: No Subjective The patient had an allergic reaction to the telemetry leads and has erythematous disc shaped lesion scattered in the chest wall that are itchy Benadryl is helping somewhat I have added triamcinolone cream. The patient continues to have significant abdominal tenderness on exam Objective Vital Signs Date Time Temp Pulse Resp B/P (MAP) Pulse Ox O2 Delivery O2 Flow Rate FiO2 08/30/24 10:00 97.4 70 17 158/95 (116) 96 Room Air 08/30/24 08:00 0.0 Result Diagram: 08/30/2441608/30/24416 Gen. No acute distress alert and oriented 4 Lungs clear to ascultation bilaterally, no wheezes rales or rhonchi appreciated Heart normal sinus rhythm no murmurs rubs or clicks noted Abdomen soft significant generalized abdominal tenderness bowel sounds are normoactive Lower extremities no clubbing cyanosis, nor edema appreciated bilaterally Coagulation Studies Laboratory Tests Test 08/27/24 20:57 Prothrombin Time 11.4 SECONDS (9.0-12.0) INR International Normalized Ratio 1.1 INR Activated Partial Thromboplast Time 29 SECONDS (22-32) Coagulation Comments Problem\Assessment\Plan complex ventral abdominal wall hernia with fat stranding 08/29 discussed this findings with surgeon who is taking the patient to the OR in two days Urticaria-allergic reaction to tele leads Prn Benadryl Topical triamcinolone cream Erythrocytosis/polycythemia Differentials include polycythemia vera, paraneoplastic syndrome, severe dehydration Hemoglobin 18.7 with hematocrit of 55 and increased RBC mass. Improved with IV fluid resuscitation FRANCIS, possibly secondary to renal tubular stasis Likely prerenal secondary to severe dehydration CT abdomen does not show any evidence of postrenal FRANCIS. Resolved Monitor daily metabolic panel Aqt-jwerhmu-esdoigdrn diabetes mellitus Blood sugar 201. Follow up with the A1c. On the hyper and hypoglycemic protocol Unspecified psychiatric disorder Mild protein calorie malnutrition Recommend outpatient follow up with psychiatrist. Albumin 3.1. Ensure t.i.d. Code Status: Full code DVT Prophylaxis: Heparin Analgesia/Sedation: [place] PRN Lines/Tubes: PIV Gi Prophylaxis: None Nutrition: NPO Date of Service: Aug 30, 2024 Billing Provider: GRIFFIN ARTIS DO Common Visit Codes: [id number] INP/OBS CARE(HIGH) GRIFFIN RATIS DO Aug 30, 2024 19:59
[2024-08-30 20:00] VITALS: RESP 18; O2SAT 97
[2024-08-30 22:00] VITALS: BP 154/101; PULSE 79; RESP 16; TEMP 98; O2SAT 95
[2024-08-31] VITALS (18 sets, daily range): BP systolic 106–151; BP diastolic 59–96; PULSE 63–85; RESP 12–18; TEMP 97.1–97.7; O2SAT 91–99
[2024-08-31 04:37] LABS: MEAN PLATELET VOLUME 8.3 FL (7.4-10.4); RED CELL DISTRIBUTION WIDTH 14.2 % (11.5-14.5)
[2024-08-31 05:01] LABS: CREATININE 1.18 MG/DL (0.60-1.10); TOTAL CARBON DIOXIDE 31.1 MMOL/L (24-32); eCRCL 66 ML/MIN; eGFR 62 ML/MIN
--- NOTE | 2024-08-31 08:24 | PROGRESS NOTE ---
Daily Progress Note Providers to CC ~ Antibiotic Timeout Antibiotic Ordered?: Yes Subjective Chief complaint none patient is NPO pending surgical intervention today Objective Vital Signs Date Time Temp Pulse Resp B/P (MAP) Pulse Ox O2 Delivery O2 Flow Rate FiO2 08/30/24 22:00 98.0 79 16 154/101 (118) 95 Room Air 08/30/24 20:00 0.0 Result Diagram: 08/31/2441808/31/24418 HEENT normocephalic nontraumatic head PERRLA. EOMI. Patient is alert and oriented x4 in no acute distress Lungs clear to ascultation bilaterally, no wheezes rales or rhonchi appreciated Heart normal sinus rhythm no murmurs rubs or clicks noted Abdomen soft significant generalized abdominal tenderness bowel sounds are normoactive Lower extremities no clubbing cyanosis, nor edema appreciated bilaterally Coagulation Studies Laboratory Tests Test 08/27/24 20:57 Prothrombin Time 11.4 SECONDS (9.0-12.0) INR International Normalized Ratio 1.1 INR Activated Partial Thromboplast Time 29 SECONDS (22-32) Coagulation Comments Problem\Assessment\Plan complex ventral abdominal wall hernia with fat stranding OR today Per Dr. Ramos Urticaria-allergic reaction to tele leads Prn Benadryl Topical triamcinolone cream Erythrocytosis/polycythemia Differentials include polycythemia vera, paraneoplastic syndrome, severe dehydration Hemoglobin 18.7 with hematocrit of 55 and increased RBC mass. Improved with IV fluid resuscitation FRANCIS, possibly secondary to renal tubular stasis Likely prerenal secondary to severe dehydration CT abdomen does not show any evidence of postrenal FRANCIS. Resolved Monitor daily metabolic panel Qhm-lomdkrh-agxngrfmi diabetes mellitus Blood sugar 201. Follow up with the A1c. On the hyper and hypoglycemic protocol Hypertension- Add Norvasc 5 mg p.o. q.day Clonidine p.r.n. Unspecified psychiatric disorder Mild protein calorie malnutrition Recommend outpatient follow up with psychiatrist. Albumin 3.1. Ensure t.i.d. Code Status: Full code DVT Prophylaxis: Heparin Analgesia/Sedation: [place] PRN Lines/Tubes: PIV Gi Prophylaxis: None Nutrition: NPO Date of Service: Aug 31, 2024 Billing Provider: TYRESE SANTOYO MD Common Visit Codes: [id number] INP/OBS CARE(HIGH) TYRESE SANTOYO MD Aug 31, 2024 08:24
--- NOTE | 2024-08-31 09:37 | ELECTROCARDIOGRAPH REPORT ---
[facility] Test Date: 2024-08-31 Test Time: 09:32:21 Pat Name: CHELO BURGOS Department: [facility] 3 Patient ID: [facility]-[id number] Room: [place] [address] B Gender: M Automated Weaver: : 1960 Requested By: ELIZABETH BLANCO Order Number: [id number] Reading MD: Dr. BRUCE Knox Measurements Intervals [place] Rate: 79 P: 0 MI: 0 QRS: 0 QRSD: 96 T: 83 QT: 422 QTc: 484 Interpretive Statements Atrial fibrillation Anterior infarct, old Electronically Signed On 09-01-2024 17:31:[address] BRUCE Knox Please click the below link to view image of tracing.
[2024-08-31 10:42] LABS: INR 1.1 INR
[2024-08-31] MEDS ORDERED: BUPIVAcaine 0.5% inj/PF 30 ML ONE (13:55)
[2024-08-31] MEDS: ringers solution, lacted 1,000 ML IV SCH (15:05)
[2024-08-31] MEDS ORDERED: ondansetron/PF 4mg/2ml inj IV PRN ×2 (15:05→18:15)
[2024-08-31] MEDS ORDERED: fentaNYL/PF 50MCG/1 ML 2ML syringe IV PRN ×2 (15:05)
[2024-08-31] MEDS ORDERED: hydrALAZINE 20mg/ml inj. IV PRN (15:05)
[2024-08-31] MEDS ORDERED: labetalol 20mg/4ml (5mg/ml) syringe IV PRN (15:05)
[2024-08-31] MEDS ORDERED: morphine 4 MG/ML inj SYRINge IV PRN (15:05)
[2024-08-31] MEDS ORDERED: dexmedetomidine 200mcg/2ml inj. IV ONE (15:54)
--- NOTE | 2024-08-31 15:56 | PROGRESS NOTE ---
Progress Note ID Providers to CC ~ Progress Note Progress Note: discussed procedure including risks/benefits/alternatives ELIZABETH BLANCO MD Aug 31, 2024 15:56
[2024-08-31] MEDS ORDERED: fentaNYL/PF 50MCG/1 ML 2ML syringe ONE (15:57)
[2024-08-31] MEDS ORDERED: midazolam 1 mg/ML 2ml injection ONE (15:57)
[2024-08-31] MEDS ORDERED: LIDOcaine 2% (20mg/ml) 5ml vial ONE (15:58)
[2024-08-31] MEDS ORDERED: rocuronium 10mg/ml inj IV ONE ×3 (15:58→16:59)
[2024-08-31] MEDS ORDERED: propofol inj 20 ML IV ONE (15:58)
[2024-08-31] MEDS: ceFAZolin/D5W- 1GM premix 50 ML IV SCH (16:00)
[2024-08-31] MEDS ORDERED: acetaminophen 1,000mg/100ml IV 100 ML IV ONE (16:05)
[2024-08-31] MEDS ORDERED: ondansetron/PF 4mg/2ml inj ONE (16:07)
[2024-08-31] MEDS ORDERED: ePHEDrine 50MG/ML INJ. ONE (16:14)
[2024-08-31] MEDS ORDERED: BUPIVAcaine 2.5mg/ml inj 50ml vial (contains preservative) ONE (16:18)
--- NOTE | 2024-08-31 18:13 | OPERATIVE REPORT ---
Operative Report Providers to CC CC: ELIZABETH BLANCO MD ~ Date of Procedure: Aug 31, 2024 Pre-Operative Diagnosis: incisional hernia-> 10 cm Post-Operative Diagnosis SAME as PRE-Op Procedure Performed robo repair incisional hernia with mesh-15 x 20 Surgeon: luc arias Anesthesiologist: Dontrell Dooley Type of Anesthesia: General Findings: multiple fascial defects Estimated Blood Loss: min Specimen Removed: none ELIZABETH BLANCO MD Aug 31, 2024 18:13
[2024-08-31] MEDS: HYDROcodone/acetaminophen 10/325mg tab PO PRN (22:20)
[2024-09-01] MEDS ORDERED: ceFAZolin inj. 1,000 MG in dextrose 5%-water 50ml 50 ML IV SCH
[2024-09-01 02:00] VITALS: BP 132/83; PULSE 76; RESP 18; TEMP 97.4; O2SAT 98
[2024-09-01 04:51] LABS: MEAN PLATELET VOLUME 8.4 FL (7.4-10.4); RED CELL DISTRIBUTION WIDTH 14.1 % (11.5-14.5)
[2024-09-01 05:05] LABS: CREATININE 1.38 MG/DL (0.60-1.10); TOTAL CARBON DIOXIDE 26.3 MMOL/L (24-32); eCRCL 56 ML/MIN; eGFR 52 ML/MIN
[2024-09-01 06:00] VITALS: BP 142/91; PULSE 65; RESP 20; TEMP 97.4; O2SAT 96
[2024-09-01 08:00] VITALS: RESP 20; O2SAT 96
[2024-09-01] MEDS: HYDROmorphone inj. 0.5 MG/0.5 ML DISP.SYRIN IV PRN (09:34)
[2024-09-01] MEDS: acetaminophen 1,000mg/100ml IV 100 ML IV ONE (10:22)
[2024-09-01] MEDS: HYDROmorph/NS 0.2 mg/ml PCA 100 ML IV SCH (10:46)
--- NOTE | 2024-09-01 11:10 | CONSULTATION ---
DATE OF CONSULTATION: 08/29/2024 DICTATING PHYSICIAN: Reza Banuelos MD REASON FOR CONSULTATION: Evaluation of abdominal pain. HISTORY OF PRESENT ILLNESS: The patient is a 64-year-old male who presented to the ER with complaints of abdominal pain and nausea. CAT scan was done, which showed incisional hernias. Surgical evaluation is now requested. On further questioning, the patient abdominal discomfort. Vomiting is much improved. Bowels are working. The patient has had a previous laparotomy for what appears to be open appendectomy a number of years ago. PAST MEDICAL HISTORY: diabetes. PAST SURGICAL HISTORY: Includes laparotomy, appendectomy. HOME MEDICATIONS: Motrin. SOCIAL HISTORY: The patient uses meth. ALLERGIES: None. REVIEW OF SYSTEMS: See H and P. PHYSICAL EXAMINATION: GENERAL: A well-nourished male, in minimal distress. VITAL SIGNS: Unremarkable. HEART: Regular rate and rhythm. LUNGS: Clear to auscultation. ABDOMEN: Shows a well-healed incision midline incisional hernia. EXTREMITIES: Unremarkable. NEUROLOGIC: Nonfocal. LABORATORY DATA: Include a WBC of 8, hematocrit of 52, platelet count is 197. Chemistry: BUN and creatinine are 9 and 1.18. IMAGING STUDIES: CT of the abdomen reveals an incisional hernia and some fat stranding. IMPRESSION: * Symptomatic incisional hernia, status post laparotomy. * History of diabetes per the chart. RECOMMENDATIONS: Surgical repair. Reza Banuelos MD TID: [id number] RECEIPT: [id number] KB/KORI/SUNDEEP
--- NOTE | 2024-09-01 11:14 | OPERATIVE REPORT ---
DATE OF SURGERY: 08/31/2024 DICTATING PHYSICIAN: Reza Banuelos MD PREOPERATIVE DIAGNOSIS: Incisional hernia. POSTOPERATIVE DIAGNOSIS: Incisional hernia. PROCEDURE: Robotic repair of incisional hernia, greater than 10 cm defect. SURGEON: Reza Banuelos MD CATALOG SPECIALIST: None. ANESTHESIA: General/Dr. Dooley. DRAINS: None. INDICATIONS FOR OPERATION: The patient is a 64-year-old male, status post laparotomy, incisional hernia, seen in surgery for repair. INTRAOPERATIVE FINDINGS: Multiple fascial defects. Total defect measuring greater than 10 cm. DESCRIPTION OF PROCEDURE: The patient was placed supine on the operating table. After induction of general anesthesia and placement of endotracheal tube, the abdomen was prepped and draped. A subfascial incision was then made and Frank port placed using an open technique. Pneumoperitoneum was begun by insufflation of CO2. Additional ports were placed in the lateral left abdomen. No endoscopic lesion. Robot was then brought to the field. Camera port docked. Camera placed, camera targeted. Additional ports were then docked and instruments placed. Abdomen was then explored. Adhesions were taken down. The patient had multiple fascial defects in the abdominal wall. Sutures of 0 V-Loc, 18 inches long were used to close the fascial defects as oversewn. A 15 x 10 piece mesh was brought into the field and placed in the abdominal cavity and secured in place with sutures of 2-0 V-Loc. Abdomen was then copiously irrigated with large antibiotic containing solution. Robotic instruments were removed, robot undocked from the field. Abdomen was irrigated. no evidence of active bleeding. Final port and camera withdrawn. Pneumoperitoneum was evacuated. The wound was closed in layers. Skin closed with clips. Dressing was applied. The patient was transferred to the recovery in stable condition. Reza Banuelos MD TID: [id number] RECEIPT: [id number] JAMEY/TABITHA/SUNDEEP
[2024-09-01] MEDS: metoclopramide 5 mg/ml inj IV SCH (14:38)
--- NOTE | 2024-09-01 17:05 | PROGRESS NOTE ---
Progress Note ID Providers to CC ~ Progress Note Progress Note: complains of pain/vss/abd-min distention/labs noted a/p 1. s/p hernia repair-doing well/add electrical installer ELIZABETH BLANCO MD Sep 01, 2024 17:05
[2024-09-01 18:00] VITALS: BP 132/75; PULSE 71; RESP 15; TEMP 98.7; O2SAT 94
--- NOTE | 2024-09-01 19:22 | PROGRESS NOTE ---
Daily Progress Note Providers to CC ~ Antibiotic Timeout Antibiotic Ordered?: Yes Subjective Patient was seen on surgical unit today patient currently on Dilaudid pump for pain control which is managed by surgeon. Objective Vital Signs Date Time Temp Pulse Resp B/P (MAP) Pulse Ox O2 Delivery O2 Flow Rate FiO2 09/01/24 19:00 14 09/01/24 08:00 96 Room Air 09/01/24 07:38 65 09/01/24 06:00 97.4 142/91 (108) 08/31/24 22:45 2.0 Result Diagram: 09/01/2442709/01/24427 General-patient not in any acute distress, alert awake oriented, chronically ill-appearing HEENT-atraumatic normocephalic, neck supple without elevated JVD, no thyromegaly or carotid bruit. No lymphadenopathy bilaterally. Eyes-no icterus or pallor seen in eyes Chest-clear to auscultation bilaterally, breathing nonlabored no tachypnea, no wheezing, no crepitation, no crackles. Heart-S1-S2 normal, regular heart rate no murmur Abdomen few bowel sounds positive on auscultation, soft appear distended signs of discomfort present on palpation over surgical site, no guarding, no rigidity Skin- well-circumscribed rash present over upper chest due to allergic reaction to tele leds, dressing present over midline abdomen Neurology-grossly intact, nonfocal alert awake oriented Extremity- no pedal edema able to move all 4 extremities Psychiatry - patient is not confused or agitated cooperated during physical examination Coagulation Studies Laboratory Tests Test 08/27/24 20:57 08/31/24 10:12 Activated Partial Thromboplast Time 29 SECONDS (22-32) Prothrombin Time 10.9 SECONDS (9.0-12.0) INR International Normalized Ratio 1.1 INR Coagulation Comments Problem\Assessment\Plan complex ventral abdominal wall hernia with fat stranding Per Dr. Ramos Urticaria-allergic reaction to tele leads Prn Benadryl Topical triamcinolone cream Erythrocytosis/polycythemia Differentials include polycythemia vera, paraneoplastic syndrome, severe dehydration Hemoglobin 18.7 with hematocrit of 55 and increased RBC mass. Improved with IV fluid resuscitation FRANCIS, possibly secondary to renal tubular stasis Likely prerenal secondary to severe dehydration CT abdomen does not show any evidence of postrenal FRANCIS. Resolved Monitor daily metabolic panel Fig-pagqaka-fghxowisa diabetes mellitus Blood sugar 201. Follow up with the A1c. On the hyper and hypoglycemic protocol Hypertension- Add Norvasc 5 mg p.o. q.day Clonidine p.r.n. Unspecified psychiatric disorder Mild protein calorie malnutrition Recommend outpatient follow up with psychiatrist. Albumin 3.1. Ensure t.i.d. Code Status: Full code DVT Prophylaxis: Heparin Analgesia/Sedation: [place] PRN Lines/Tubes: PIV Gi Prophylaxis: None Nutrition: NPO Date of Service: Sep 01, 2024 Billing Provider: CHRIS DE MD Common Visit Codes: [id number] INP/OBS CARE(HIGH) CHRIS DE MD Sep 01, 2024 19:22
[2024-09-01 20:00] VITALS: RESP 15; O2SAT 94
[2024-09-01 22:00] VITALS: BP 143/86; PULSE 85; RESP 20; TEMP 97.7; O2SAT 94
[2024-09-02 06:06] LABS: CREATININE 1.11 MG/DL (0.60-1.10); TOTAL CARBON DIOXIDE 27.2 MMOL/L (24-32); eCRCL 70 ML/MIN; eGFR 66 ML/MIN
[2024-09-02 07:11] VITALS: BP 150/100; PULSE 93; RESP 18; TEMP 98.8; O2SAT 92
[2024-09-02 10:34] VITALS: BP 124/81; PULSE 101; RESP 16; TEMP 97.9; O2SAT 91
--- NOTE | 2024-09-02 13:12 | PROGRESS NOTE ---
Progress Note ID Providers to CC ~ Progress Note Progress Note: pain improved with cash posting specialist/vss/abd-mild distention a/p 1. s/p repair incisional hernia-persistent ileus/add ELIZABETH Oconnor MD Sep 02, 2024 13:12
[2024-09-02 14:27] VITALS: RESP 16
[2024-09-02 19:00] VITALS: BP 152/93; PULSE 100; RESP 18; TEMP 98.4; O2SAT 94
[2024-09-02 20:00] VITALS: RESP 18; O2SAT 94
--- NOTE | 2024-09-02 20:40 | PROGRESS NOTE ---
Daily Progress Note Providers to CC ~ Antibiotic Timeout Antibiotic Ordered?: No Subjective Patient was seen in his room, his clinical condition more or less unchanged since yesterday. Further management as recommended by Dr. Banuelos Objective Vital Signs Date Time Temp Pulse Resp B/P (MAP) Pulse Ox O2 Delivery O2 Flow Rate FiO2 09/02/24 19:00 15 09/02/24 14:27 Room Air 09/02/24 10:34 97.9 101 124/81 (95) 91 08/31/24 22:45 2.0 Result Diagram: 09/01/24 0428 09/02/24 0433 General-patient not in any acute distress, alert awake oriented, chronically ill-appearing HEENT-atraumatic normocephalic, neck supple without elevated JVD, no thyromegaly or carotid bruit. No lymphadenopathy bilaterally. Eyes-no icterus or pallor seen in eyes Chest-clear to auscultation bilaterally, breathing nonlabored no tachypnea, no wheezing, no crepitation, no crackles. Heart-S1-S2 normal, regular heart rate no murmur Abdomen few bowel sounds positive on auscultation, soft appear distended signs of discomfort present on palpation over surgical site, no guarding, no rigidity Skin- well-circumscribed rash present over upper chest due to allergic reaction to tele leds, dressing present over midline abdomen Neurology-grossly intact, nonfocal alert awake oriented Extremity- no pedal edema able to move all 4 extremities Psychiatry - patient is not confused or agitated cooperated during physical examination Coagulation Studies Laboratory Tests Test 08/27/24 20:57 08/31/24 10:12 Activated Partial Thromboplast Time 29 SECONDS (22-32) Prothrombin Time 10.9 SECONDS (9.0-12.0) INR International Normalized Ratio 1.1 INR Coagulation Comments Problem\Assessment\Plan complex ventral abdominal wall hernia with fat stranding OR today Per Dr. Ramos Urticaria-allergic reaction to tele leads Prn Benadryl Topical triamcinolone cream Erythrocytosis/polycythemia Differentials include polycythemia vera, paraneoplastic syndrome, severe dehydration Hemoglobin 18.7 with hematocrit of 55 and increased RBC mass. Improved with IV fluid resuscitation FRANCIS, possibly secondary to renal tubular stasis Likely prerenal secondary to severe dehydration CT abdomen does not show any evidence of postrenal FRANCIS. Resolved Monitor daily metabolic panel Dhr-ipzoqbn-dnsagcdau diabetes mellitus Blood sugar 201. Follow up with the A1c. On the hyper and hypoglycemic protocol Hypertension- Add Norvasc 5 mg p.o. q.day Clonidine p.r.n. Unspecified psychiatric disorder Mild protein calorie malnutrition Recommend outpatient follow up with psychiatrist. Albumin 3.1. Ensure t.i.d. Code Status: Full code DVT Prophylaxis: Heparin Patient's current condition is guarded we will continue to follow patient in AM . Date of Service: Sep 02, 2024 Billing Provider: CHRIS DE MD Common Visit Codes: [id number] INP/OBS CARE(HIGH) CHRIS DE MD Sep 02, 2024 20:40
[2024-09-02 22:00] VITALS: BP 163/90; PULSE 68; RESP 18; TEMP 98.8; O2SAT 91
[2024-09-03 06:29] LABS: CREATININE 1.04 MG/DL (0.60-1.10); TOTAL CARBON DIOXIDE 28.2 MMOL/L (24-32); eCRCL 74 ML/MIN; eGFR 71 ML/MIN
[2024-09-03 06:37] VITALS: BP 178/96; PULSE 96; RESP 16; TEMP 98; O2SAT 92
[2024-09-03] MEDS: magnesium hydroxide 30ml (MOM) UD suspension PO PRN (07:19)
[2024-09-03 07:33] VITALS: RESP 16
[2024-09-03] MEDS: PCA WASTE DOCUMENTATION 1 MG ML MC SCH (08:52)
[2024-09-03] MEDS: normal saline 1000ml 1,000 ML IV SCH (09:00)
[2024-09-03 09:12] LABS: MEAN PLATELET VOLUME 9.4 FL (7.4-10.4); RED CELL DISTRIBUTION WIDTH 14.2 % (11.5-14.5)
[2024-09-03] MEDS: HYDROcodone/acetaminophen 5mg/325mg tablet PO PRN (09:49)
[2024-09-03] MEDS: HYDROmorphone/PF 0.2 MG/ML SYRINGE IV PRN (11:11)
--- NOTE | 2024-09-03 11:52 | PROGRESS NOTE ---
Daily Progress Note Providers to CC ~ Antibiotic Timeout Antibiotic Ordered?: Yes Subjective Patient was seen in his room in presence of nursing staff Annie today. As per nursing staff he pulled out his IV line and blood pressure is also getting higher. Patient is currently not on WATER/WASTEWATER PROJECT MANAGER pump in on p.o. medication as recommended by surgical team. Objective Vital Signs Date Time Temp Pulse Resp B/P (MAP) Pulse Ox O2 Delivery O2 Flow Rate FiO2 09/03/24 11:11 18 09/03/24 09:48 88 09/03/24 07:33 Room Air 09/03/24 06:37 98.0 178/96 (123) 92 09/02/24 20:00 2.0 Result Diagram: 09/03/24 0502 09/03/24 0502 General-patient not in any acute distress, alert awake oriented, chronically ill-appearing HEENT-atraumatic normocephalic, neck supple without elevated JVD, no thyromegaly or carotid bruit. No lymphadenopathy bilaterally. Eyes-no icterus or pallor seen in eyes Chest-clear to auscultation bilaterally, breathing nonlabored no tachypnea, no wheezing, no crepitation, no crackles. Heart-S1-S2 normal, regular heart rate no murmur Abdomen few bowel sounds positive on auscultation, soft appear distended signs of discomfort present on palpation over surgical site, no guarding, no rigidity Skin- well-circumscribed rash present over upper chest due to allergic reaction to tele leds, dressing present over midline abdomen Neurology-grossly intact, nonfocal alert awake oriented Extremity- no pedal edema able to move all 4 extremities Psychiatry - patient is not confused or agitated cooperated during physical examination Coagulation Studies Laboratory Tests Test 08/27/24 20:57 08/31/24 10:12 Activated Partial Thromboplast Time 29 SECONDS (22-32) Prothrombin Time 10.9 SECONDS (9.0-12.0) INR International Normalized Ratio 1.1 INR Coagulation Comments Problem\Assessment\Plan complex ventral abdominal wall hernia with fat stranding Status post robotic repair of incisional hernia greater than [address] Valles Urticaria-allergic reaction to tele leads Prn Benadryl Topical triamcinolone cream Erythrocytosis/polycythemia- improved Differentials include polycythemia vera, paraneoplastic syndrome, severe dehydration Improved with IV fluid resuscitation FRANCIS, possibly secondary to renal tubular stasis Likely prerenal secondary to severe dehydration CT abdomen does not show any evidence of postrenal FRANCIS. Resolved Monitor daily metabolic panel Lcf-skzzqsr-oirrsxofj diabetes mellitus Hemoglobin A1c 6.6 On the hyper and hypoglycemic protocol Hypertension- Norvasc 5 mg p.o. q.day Clonidine p.r.n. Unspecified psychiatric disorder Mild protein calorie malnutrition Recommend outpatient follow up with psychiatrist. Albumin 3.1. Ensure t.i.d. Code Status: Full code DVT Prophylaxis: Heparin Patient's current condition is guarded we will continue to follow patient in AM . Date of Service: Sep 03, 2024 Billing Provider: CHRIS DE MD Common Visit Codes: [id number] INP/OBS CARE(HIGH) CHRIS DE MD Sep 03, 2024 11:52
--- NOTE | 2024-09-03 12:41 | PROGRESS NOTE ---
Progress Note ID Providers to CC ~ Progress Note Progress Note: doing well/advance diet-home in am ELIZABETH BLANCO MD Sep 03, 2024 12:41
[2024-09-03 14:43] VITALS: BP 121/76; PULSE 78
[2024-09-03] MEDS: HYDROcodone/acetaminophen 10/325mg tab PO PRN (17:23)
[2024-09-03 18:00] VITALS: BP 136/84; PULSE 91; RESP 18; TEMP 97.4; O2SAT 94
[2024-09-03] MEDS: magnesium hydroxide 30ml (MOM) UD suspension PO SCH (19:29)
[2024-09-03 20:00] VITALS: RESP 18; O2SAT 94
[2024-09-03 22:00] VITALS: BP 152/93; PULSE 94; RESP 18; TEMP 98.1; O2SAT 95
[2024-09-04 05:49] LABS: CREATININE 1.03 MG/DL (0.60-1.10); TOTAL CARBON DIOXIDE 29.5 MMOL/L (24-32); eCRCL 75 ML/MIN; eGFR 72 ML/MIN
[2024-09-04 06:00] VITALS: BP 122/58; PULSE 96; RESP 17; TEMP 97.5; O2SAT 96
[2024-09-04 08:00] VITALS: RESP 16; O2SAT 98
[2024-09-04 10:00] VITALS: BP 140/81; PULSE 98; RESP 16; TEMP 97.9; O2SAT 97
[2024-09-04] MEDS ORDERED: ACET-1008 PO (11:29)
[2024-09-04] MEDS ORDERED: LISI20TA28 PO (11:31)
[2024-09-04] MEDS ORDERED: OMEP20CA16 PO (11:31)
[2024-09-04] MEDS ORDERED: TRIA15CR61 TP (14:35)
--- NOTE | 2024-09-04 14:41 | DISCHARGE SUMMARY ---
Discharge Summary Providers to CC ~ Discharge Summary Admission Diagnosis: incisional hernia-> 10 cm Hospital Course DATE OF ADMISSION: August 27, 2024 DATE OF DISCHARGE: September 04, 2024 CBC testing done on September 03, 2024 WBC 10.7 hemoglobin 17.4 hematocrit 52.3 sed rate 5.0, procalcitonin 0.05. Hemoglobin A1c 6.6. CMP done on September 04, 2024 sodium 141 potassium 3.7 creatinine 1.[address] ABDOMEN PELVIS-IMPRESSION: No acute intraabdominal abnormality. Complex ventral abdominal wall hernia with fat stranding, similar. Small bladder stones. No hydronephrosis. Discharge Diagnosis\\Comment: complex ventral abdominal wall hernia with fat stranding , Status post robotic repair of incisional hernia greater than [address] Valles Urticaria-allergic reaction to tele leads Erythrocytosis/polycythemia- improved FRANCIS, possibly secondary to renal tubular stasis Likely prerenal secondary to severe dehydration Rqv-ennmoku-ulnqgrhvp diabetes mellitus Hypertension, stable Unspecified psychiatric disorder Mild protein calorie malnutrition Operations\\Procedures: Status post robotic repair of incisional hernia greater than [address] Valles Consultants: Dr. Valles Complications: None Condition on DC: Stable New Medications: Omeprazole (Omeprazole) 20 Mg Capsule.dr 1 CAP PO BKF for 10 Days, #10 CAP 0 Refills Lisinopril (Lisinopril) 20 Mg Tablet 20 MG PO DAILY for 30 Days, #30 TAB Changed Medications: Acetaminophen (Tylenol) 325 Mg Tablet 1 TAB PO Q8H PRN for pain or fever for 10 Days, #30 TAB (Changed from: QDAY PRN; 30) Continued Medications: Ibuprofen (Ibuprofen) 600 Mg Tablet 1 TAB PO Q6H for Pain, #30 TAB Discharge Summary: As per admitting provider's history and physical note" This is a 64-year-old male with history of unspecified psychiatric disorder in the past presents to the ER with a chief complaint nausea, abdominal pain. Patient states that he has been having chronic nausea and abdominal pain since the last three years which got worse today. He rates his abdominal pain is 7/10 in the lower quadrant. He denies any burning in the urine or increased frequency of micturition. He has been dehydrated since the last one week due to the heat and was not drinking enough water nor has air conditioning at home. He denies any history of kidney disease, does not have a PCP. He has been evaluated for his nausea and abdominal pain three years ago when he was told at a secondary to a psychiatric problem. He denies fever, pain elsewhere, any other complaints. He endorses smoking methamphetamine, few months ago, quit now. He smokes about half pack now since two years but previously used to smoke one pack per day befo re that. He used to be a heavy alcohol user but quit three years ago." During hospitalization patient is treated for complex ventral abdominal wall hernia with fat stranding Status post robotic repair of incisional hernia greater than [address] Valles Urticaria-allergic reaction to tele leads Prn Benadryl Topical triamcinolone cream Erythrocytosis/polycythemia- improved Differentials include polycythemia vera, paraneoplastic syndrome, severe dehydration Improved with IV fluid resuscitation FRANCIS, possibly secondary to renal tubular stasis Likely prerenal secondary to severe dehydration CT abdomen does not show any evidence of postrenal FRANCIS. Resolved Monitor daily metabolic panel Uug-ohzmqro-ckktnxoli diabetes mellitus Hemoglobin A1c 6.6 On the hyper and hypoglycemic protocol Hypertension-discharged on lisinopril 20 mg tablet Norvasc 5 mg p.o. q.day Clonidine p.r.n. Unspecified psychiatric disorder Mild protein calorie malnutrition Patient's clinical condition improved during hospitalization he is able to ambulate . He has been afebrile getting discharged home in stable condition. Patient is seen and examined on the day of discharge discharge instructions provided to the patient. Dr. Valles is okay to discharge the patient today. Patient needs follow-up with primary care physician and Dr. Martinez in 1-[address] Valles's office for appointment. Pain medication prescription as per Dr. Valles. Activity as tolerated. Repeat CBC BMP sed rate and procalcitonin in five days with PCP in outpatient setting. Increase oral fluid more than 1000 mL per day. General-patient not in any acute distress, alert awake oriented, chronically ill-appearing HEENT-atraumatic normocephalic, neck supple without elevated JVD, no thyromegaly or carotid bruit. No lymphadenopathy bilaterally. Eyes-no icterus or pallor seen in eyes Chest-clear to auscultation bilaterally, breathing nonlabored no tachypnea, no wheezing, no crepitation, no crackles. Heart-S1-S2 normal, regular heart rate no murmur Abdomen few bowel sounds positive on auscultation, soft , nondistended signs of discomfort present on palpation over surgical site, no guarding, no rigidity Skin- well-circumscribed rash present over upper chest due to allergic reaction to tele leds, Neurology-grossly intact, nonfocal alert awake oriented Extremity- no pedal edema able to move all 4 extremities Psychiatry - patient is not confused or agitated cooperated during physical examination *Problems/Diagnosis: (1) Hernia of abdominal wall (2) Acute kidney injury Status: Acute Total Time Spent on D/C: > 30 Minutes Date of Service: Sep 04, 2024 Billing Provider: CHRIS DE MD Common Visit Codes: 95201-BGN/OBS DISCH DAY >30min CHRIS DE MD Sep 04, 2024 14:36
[2024-09-04 18:00] VITALS: BP 138/68; PULSE 68; RESP 17; TEMP 98.4; O2SAT 97
== END 2024-09-04 18:00 | disposition home or self-care (01) | DRG 350 ==
LOC: ER 19:51 → ED HOLD 22:30 → SUR 3N 08-28 00:10
PROVIDERS: ADMIT Internal Medicine Critical Care Medicine; ATTEND Family Medicine
PROC: 8E0W4CZ Robotic Assisted Procedure of Trunk Region, Percutaneous Endoscopic Approach (ICD-10-PCS; 2024-08-31)
PROC: 0YU64JZ Supplement Left Inguinal Region with Synthetic Substitute, Percutaneous Endoscopic Approach (ICD-10-PCS; principal; 2024-08-31 15:51)
DX: K43.2 Incisional hernia without obstruction or gangrene (principal); N17.0 Acute kidney failure with tubular necrosis; E44.1 Mild protein-calorie malnutrition; E86.0 Dehydration; N21.0 Calculus in bladder; D75.1 Secondary polycythemia; E86.9 Volume depletion, unspecified; E11.65 Type 2 diabetes mellitus with hyperglycemia; I10 Essential (primary) hypertension; L50.9 Urticaria, unspecified; Z77.011 Contact with and (suspected) exposure to lead; Z87.891 Personal history of nicotine dependence; Z68.26 Body mass index [BMI] 26.0-26.9, adult; Z79.84 Long term (current) use of oral hypoglycemic drugs
CPT/HCPCS: 36415; 74176; 80048; 80053; 80061; 80076; 81003; 82570; 82948; 83036; 83690; 83735; 83880; 83935; 84133; 84145; 84156; 84300; 84484; 85025; 85610; 85651; 85730; 87081; 87207; 93005; 96360; 97116; 97161; 97164; 97530; 99285; A4215; A4615; A4618; A6258; A6402; C1781; G0378; J0131; J0690; J1100; J1171; J1644; J1815; J2003; J2250; J2270; J2405; J2704; J2765; J3010; J3490; J7030; Q0163; Q9963

== ENCOUNTER 2024-09-18 23:21 | Emergency (ER) | payer MEDICARE, MEDICAID ==
[~2024-09-18] VITALS: Ht 180.3 cm; Wt 61.0 kg
[~2024-09-18 23:21] MED LIST changes: +ACET-1008 PO; +LISI20TA28 PO; -NO HOME MEDS; +OMEP20CA16 PO; +TRIA15CR61 TP
[2024-09-18 23:30] VITALS: TEMP 96.3
--- NOTE | 2024-09-19 05:36 | Physician Documentation ---
History of Present Illness Chief Complaint: Post-operative complication Stated Complaint: "SOMETHING BLOWING UP INSIDE ME" Time Seen by MD: 05:35 OK to notify your PCP?: Yes Primary Medical Doctor: NONE Source: patient, RN/, RN notes reviewed, old records Mode of Arrival: POV Exam Limitations: no limitations HPI 64 year old male seen in bed 09 with recent hernia surgery presents due to post operative complications. Patient states that he had a hernia repair surgery performed 9 days ago. He states that he went in one day ago to his office for a follow up but was not able to see his surgeon Richard. He presents today complaining of pain and stating he wants to get his shan removed. Per patients nurse, patient states that he is requesting narcotics for his pain. He denies any diarrhea. Medication Reconciliation Allergies: Coded Allergies: No Known Drug Allergies (Verified Allergy, Unknown, 09/18/24) Uncoded Allergies: ELECTRODES (Allergy, Intermediate, welts, 09/02/24) Scheduled Ibuprofen (Ibuprofen), 1 TAB PO Q6H Lisinopril (Lisinopril), 20 MG PO DAILY Omeprazole (Omeprazole), 1 CAP PO BKF Triamcinolone Acetonide 0.5% Crm* (Kenalog 0.5% Crm*), 1 APPLIC TP BID Scheduled PRN Acetaminophen (Tylenol), 1 TAB PO Q8H PRN for pain or fever, (Reported) Past Medical History Past Medical History: *CARDIOVASCULAR*, *GI/HEPATOBILIARY*, Hernia, Diabetes Drug Use: methamphetamine Lives In: Home Occupation: retired Review of Systems All Other Systems at this time: Reviewed and Negative ROS Scribed for Mateus Reyes MD by Norm Berkowitz . 09/19/24 05:50 Physical Exam Vital Signs: RN Vital Signs have been reviewed: Yes, Temperature: 96.3, Source: Temporal, Heart Rate: 82, Respiratory Rate: 15, BP: 133/76, Pulse Oximetry: 95, Weight: 61.050 Pulse Oximetry Reflects: adequate oxygenation Physical Exam General: The patient is well developed, well nourished, nontoxic appearing and is in no acute distress. Skin: [place], warm and dry with no rashes. HEENT: Head was normocephalic and atraumatic. Eyes - pupils equal, round, reactive to light and accommodation. Extraocular movements were intact. Conjunctivae were nonicteric. Ears - bilateral tympanic membranes were normal. The mouth and oropharynx were clear with moist mucous membranes. There were no pharyngeal exudates or erythema. Neck: Supple and nontender. There was no jugular venous distention, lymphadenopathy, thyromegaly or masses. Chest: Clear to auscultation bilaterally without wheezes, rales or rhonchi. No accessory muscle use. No dullness to percussion. Heart: Rate regular and rhythmic. S1, S2. No murmurs. Palpation of the chest wall was normal. No rubs or thrills. Abdomen: Active bowel sounds. [place] in place with no redness or draining at the site. Diffusely tender abdomen. . No guarding or rebound. No hepatosplenomegaly or palpable masses. Extremities: No cyanosis, clubbing or edema. The patient moves all extremities. Pulses were equal and symmetric. Neurologic: Cranial nerves II-XII were intact. Sensation was intact to light touch throughout. Motor strength was 5/5 in all four extremities. Deep tendon reflexes were intact in both upper and lower extremities. Psychologic: The patient was oriented to person, place and time. The patient demonstrated appropriate judgement and insight. Progress Results/Orders Results/Orders Vital Signs 09/18/24 23:30 Temp 96.3 Pulse 82 Resp 15 B/P (MAP) 133/76 Pulse Ox 95 Re-Evaluation Re-Evaluation : Re-Evaluation Time: 05:52 Re-Evaluation: Unchanged Progress Patient is seen in bed playing with staple site. EKG/XRAY/CT/US/VASC/MRI CT : Impression CLINICAL INFORMATION: Abdominal pain. Hernia repair 9 days ago. TECHNIQUE: Axial CT images of the abdomen and pelvis were obtained after the uneventful administration of 100 mL Omnipaque 300 IV contrast. Oral contrast was also administered prior to the examination. Coronal and sagittal reformatted images were obtained, reviewed, and stored. All CT scans at this medical facility are performed using dose modulation techniques as appropriate to a performed exam including the following: Automated exposure control was utilized; adjustment of the MA and/or KV according to patient size; and use of iterative reconstruction technique. CTDIvol = 19.45 mGy DLP = 1079.57 mGy-cm COMPARISON: CT CT ABDOMEN PELVIS W/ ORAL CONTRAST on DOS: 08/29/24, CT CT ABDOMEN PELVIS on DOS: 08/27/24 FINDINGS: Lung bases: Lung bases are clear. Liver: Unremarkable. No abnormal density or focal lesion. Biliary: No calcified gallstones or biliary ductal dilatation. Spleen: Unremarkable. Pancreas: Unremarkable. No inflammatory changes, ductal dilatation, or mass identified. Adrenal glands: 2.5 cm right adrenal mass is stable. Kidneys: No hydronephrosis or mass. Aorta/Vascular: Calcified and noncalcified atheromatous plaque in the abdominal aorta and its main branches. No abdominal aortic aneurysm. Retroperitoneum: No mass or lymphadenopathy. Bowel/mesentery: No small bowel obstruction. Mildly distended small bowel loops, likely ileus. Appendix is not visualized. Pelvic organs: Mildly enlarged prostate with impression on the bladder base. Bladder: There is mild circumferential thickening of the bladder wall. There calcifications along the posterior bladder wall. Abdominal wall: Postsurgical changes in the ventral abdominal wall compared to the prior exam. There are fluid collections within the subcutaneous tissues adjacent to the surgical site, with the largest measuring up to 3.4 cm, likely postoperative seromas or hematomas. Bones: No acute fracture or focal intraosseous lesion. IMPRESSION: 1. Interval postsurgical changes as described above. Postoperative collections are seen adjacent to the site of the ventral hernia repair, likely seromas or hematomas. Abscess would be less likely but not completely excluded in the appropriate clinical setting. Correlate with clinical findings. 2. No small bowel obstruction. Mildly distended small bowel loops, possible ileus. 3. Circumferential thickening of the bladder wall with similar appearance on prior exams. Correlate with clinical findings and urinalysis. Calcifications along the posterior bladder wall, likely urinary calculi. 4. Stable right adrenal mass. Most likely an adenoma. If clinically indicated, MRI adrenal mass protocol could be considered. 5. Additional findings as detailed above. Medical Decision Making Additional Comments Patient signed out to me by previous ED physician. This is a 64-year-old male who is nine days postop a ventral hernia repair. CT of the abdomen and pelvis does not show any acute findings that require intervention. He has postoperative changes from the surgery. Patient was medicated for pain. I spoke with Dr. Ramos who did the surgery. He has instructed me to have the patient follow up in his clinic as follow up next week. Patient will be discharged home with follow up in clinic. Return to ED with any acutely worsening symptoms. Departure Disposition: 01 HOME / SELF CARE / HOMELESS Impression: Primary Impression: Abdominal pain Additional Impression: Post-operative pain Condition: Stable Discharge Instructions: Medical Screening Exam Additional Instructions: Please follow up in the surgery clinic next week. Return to the ED with any acutely worsening symptoms. Referrals: NO PRIMARY CARE PROVIDER (PCP) Education Educated: Patient Educated regarding: diagnosis, treatment, prognosis Signature Scribe Signature: Scribed for Mateus Reyes MD by Norm Berkowitz . 09/19/24 05:52 Attestation: The note accurately reflects work and decisions made by me.Mateus Reyes MD 09/19/24 05:36 MATEUS REYES MD Sep 19, 2024 05:36 NORM CASTANEDA Sep 19, 2024 05:52 ISAIAS CASEY MD Sep 19, 2024 12:25
[2024-09-19] MEDS: normal saline 1000ML IV soln IVB ONE (06:10)
[2024-09-19] MEDS: diatr meglu/diatrizoate 30ml oral sol.-(3 dose) bottle PO SCH (06:16)
[2024-09-19 06:32] LABS: MEAN PLATELET VOLUME 8.2 FL (7.4-10.4); RED CELL DISTRIBUTION WIDTH 13.8 % (11.5-14.5)
[2024-09-19] MEDS ORDERED: iohexol 300mg/ml 100ml inj. ONE (07:27)
[2024-09-19 08:03] LABS: CREATININE 1.66 MG/DL (0.60-1.10); TOTAL CARBON DIOXIDE 24.5 MMOL/L (24-32); eCRCL 38 ML/MIN; eGFR 42 ML/MIN
[2024-09-19 08:12] LABS: ETHANOL < 10 MG/DL (<10)
--- NOTE | 2024-09-19 08:37 | RADIOLOGY REPORT ---
CLINICAL INFORMATION: Abdominal pain. Hernia repair 9 days ago. TECHNIQUE: Axial CT images of the abdomen and pelvis were obtained after the uneventful administratio n of 100 mL Omnipaque 300 IV contrast. Oral contrast was also administered prior to the examination. Coronal and sagittal reformatted images were obtained, reviewed, and stored. All CT scans at this [facility] facility are performed using dose modulation techniques as appropriate to a performed exam inclu ding the following: Automated exposure control was utilized; adjustment of the MA and/or KV according to patient size; and use of iterative reconstruction technique. CTDIvol = 19.45 mGy DLP = 1079.57 mGy-cm COMPARISON: CT CT ABDOMEN PELVIS W/ ORAL CONTRAST on DOS: 08/29/24, CT CT ABDOMEN PELVIS on DOS: FINDINGS: Lung bases: Lung bases are clear. Liver: Unremarkable. No abnormal density or focal lesion. Biliary: No calcified gallstones or biliary ductal dilatation. Spleen: Unremarkable. Pancreas: Unremarkable. No inflammatory changes, ductal dilatation, or mass identified. Adrenal glands: 2.5 cm right adrenal mass is stable. Kidneys: No hydronephrosis or mass. Aorta/Vascular: Calcified and noncalcified atheromatous plaque in the abdominal aorta and its main br anches. No abdominal aortic aneurysm. Retroperitoneum: No mass or lymphadenopathy. Bowel/mesentery: No small bowel obstruction. Mildly distended small bowel loops, likely ileus. Append ix is not visualized. Pelvic organs: Mildly enlarged prostate with impression on the bladder base. Bladder: There is mild circumferential thickening of the bladder wall. There calcifications along th e posterior bladder wall. Abdominal wall: Postsurgical changes in the ventral abdominal wall compared to the prior exam. There are fluid collections within the subcutaneous tissues adjacent to the surgical site, with the largest measuring up to 3.4 cm, likely postoperative seromas or hematomas. Bones: No acute fracture or focal intraosseous lesion. IMPRESSION: 1. Interval postsurgical changes as described above. Postoperative collections are seen adjacent to the site of the ventral hernia repair, likely seromas or hematomas. Abscess would be less likely but not completely excluded in the appropriate clinical setting. Correlate with clinical findings. 2. No small bowel obstruction. Mildly distended small bowel loops, possible ileus. 3. Circumferential thickening of the bladder wall with similar appearance on prior exams. Correlate w ith clinical findings and urinalysis. Calcifications along the posterior bladder wall, likely urinary calculi. 4. Stable right adrenal mass. Most likely an adenoma. If clinically indicated, MRI adrenal mass khari col could be considered. 5. Additional findings as detailed above.
[2024-09-19 10:22] VITALS: RESP 17; O2SAT 97
[2024-09-19 12:53] VITALS: BP 114/81; PULSE 68
== END 2024-09-19 13:03 | disposition home or self-care (01) ==
LOC: ER 23:21
DX: G89.18 Other acute postprocedural pain (principal); R10.9 Unspecified abdominal pain; E11.9 Type 2 diabetes mellitus without complications; F15.90 Other stimulant use, unspecified, uncomplicated; Z79.899 Other long term (current) drug therapy
CPT/HCPCS: 36415; 74177; 80053; 83605; 83690; 83735; 85025; 96360; 99285; G0480; J7030; Q9963; Q9967; 80320

== ENCOUNTER 2024-11-04 17:48 | Emergency (ER) | payer MEDICARE, MEDICAID ==
[~2024-11-04] VITALS: Ht 180.3 cm; Wt 93.5 kg
[~2024-11-04 17:48] MED LIST changes: -IBUP-1985 PO; +IBUP600T52 PO
--- NOTE | 2024-11-04 18:06 | Physician Documentation ---
History of Present Illness General Chief Complaint: Abdominal Pain Stated Complaint: BACK PAIN Time Seen by MD: 18:05 Primary Medical Doctor: NONE History of Present Illness Initial Comments Patient is a 64-year-old male who has had a inguinal hernia surgery about one month ago. Patient called EMS for left back and thoracic region pain that he has had chronically but he states it is worse over last two days. The patient states pain is worse with movement. Patient's states he has been using Tylenol and ibuprofen without relief at home. The patient also states he has had lower abdominal surgical site pain over last five days. No fevers no chills no nausea or vomiting no significant cardiac history. Patient states he does have some pleuritic component to his pain states he is slightly worse in the chest when he takes a deep breath he denies any shortness of breath. Medication Reconciliation Allergies: Uncoded Allergies: ELECTRODES (Allergy, Intermediate, welts, 09/02/24) PCN (Allergy, Unknown, 11/04/24) Scheduled Cyclobenzaprine* (Cyclobenzaprine*), 1 TAB PO Q8H Ibuprofen (Ibuprofen), 1 TAB PO Q6H Lisinopril (Lisinopril), 20 MG PO DAILY Omeprazole (Omeprazole), 1 CAP PO BKF Triamcinolone Acetonide 0.5% Crm* (Kenalog 0.5% Crm*), 1 APPLIC TP BID Scheduled PRN Acetaminophen (Tylenol), 1 TAB PO Q8H PRN for pain or fever, (Reported) Past Medical History Past Medical History: *CARDIOVASCULAR*, *GI/HEPATOBILIARY*, Hernia, Diabetes Drug Use: methamphetamine Lives In: Home Occupation: retired Review of Systems All Other Systems at this time: Reviewed and Negative Physical Exam Physical Exam Vital Signs: Temperature: 97.5, Source: Oral, Heart Rate: 86, Respiratory Rate: 15, BP: 149/101, Pulse Oximetry: 97, Weight: 93.500 Physical Exam VITALS: Reviewed and as above. GENERAL: Alert, no apparent distress. HEENT: Normocephalic, atraumatic, PERRL, EOMI, dry mucosa, no erythema RESPIRATORY: Lungs clear, normal breath sounds, no respiratory distress. CHEST: No accessory muscle use, no retractions CV: Regular rate, rhythm, no edema, no murmur, No: JVD GI: Soft, non-tender, bowels sounds present, no rebound, guarding, or rigidity BACK: No CVA tenderness, or swelling the patient has tenderness over the medial aspect of the left scapula. MUSCULOSKELETAL: No deformities, no edema SKIN: Warm and dry, no rash NEURO: Oriented x4, No motor or sensory deficit PSYCH: Normal mood and affect, no agitation Progress Results/Orders Results/Orders Orders - OHSOLOMON THOMPSON MD Urinalysis, Cult If Indicated (11/04/24 18:04) Chest,Single View (11/04/24 18:54) Cta Chest Ct Abd Pelvis (11/04/24 21:10) Completed Orders - SOLOMON SPAIN MD Cbc/Diff (11/04/24 18:04) CMP (11/04/24 18:04) Normal Saline 1000ml (0.9% Sodium Chlori (11/04/24 18:05) Procalcitonin (11/04/24 18:04) Ondansetron Inj. (Zofran 4mg/2ml Vial) (11/04/24 18:15) Morphine 4mg/Ml Inj. (Morphine Inj.) (11/04/24 18:15) Chest,Single View (11/04/24 18:54) Stat Ekg (11/04/24 18:54) Ketorolac Trometh 15mg/Ml Vial (Toradol (11/04/24 19:00) D-Dimer (11/04/24 18:58) Iohexol 350mg/Ml 100ml (Omnipaque 350mg/ (11/04/24 20:27) Oxycodone/Acetaminophen Tablet (Percocet (11/04/24 20:40) Iohexol 350mg/Ml 100ml (Omnipaque 350mg/ (11/04/24 20:40) Cta Chest Ct Abd Pelvis (11/04/24 21:10) Hs Troponin I W Calculations (11/04/24 20:57) Hs Troponin I W Calculations (11/04/24 22:57) Medications Received in ER Medications (Trade) Dose Ordered Sig/Edith Route PRN Reason Start Time Stop Time Status Last Admin Dose Admin (Toradol injection) 15 mg ONCE ONCE IV 11/04/24 19:00 11/04/24 19:01 DC 11/04/24 19:45 15 MG (Percocet 10-325 mg tab) 1 tab ONCE ONCE PO 11/04/24 20:40 11/04/24 20:42 DC 11/04/24 21:04 1 TAB Vital Signs 11/04/24 11/04/24 11/04/24 11/04/24 17:50 17:58 18:19 19:42 Temp 97.5 Pulse 89 86 Resp 15 15 15 20 B/P (MAP) 179/97 149/101 (117) Pulse Ox 98 97 11/04/24 11/04/24 11/04/24 19:45 20:29 21:04 Temp 97.5 Pulse 80 Resp 20 17 16 B/P (MAP) 165/95 Pulse Ox 96 Laboratory Tests Test 11/04/24 18:24 11/04/24 21:23 White Blood Count 7.4 Red Blood Count 5.62 Hemoglobin 16.3 Hematocrit 48.4 Mean Corpuscular Volume 86.1 Mean Corpuscular Hemoglobin 29.0 Mean Corpuscular Hemoglobin Concent 33.7 Red Cell Distribution Width 14.4 Platelet Count 256 Mean Platelet Volume 7.8 Neutrophils (%) (Auto) 59.8 Lymphocytes (%) (Auto) 31.5 Monocytes (%) (Auto) 6.1 Eosinophils (%) (Auto) 2.0 Basophils (%) (Auto) 0.6 Neutrophils # (Auto) 4.4 Lymphocytes # (Auto) 2.3 Monocytes # (Auto) 0.5 Eosinophils # (Auto) 0.1 Basophils # (Auto) 0.0 CBC Comment D-Dimer 0.58 H D-Dimer Comment Sodium Level 147 H Potassium Level 4.1 Chloride Level 111 H Carbon Dioxide Level 26.2 Anion Gap 10 Blood Urea Nitrogen 21 H Creatinine 1.15 H Estimated GFR/1.73 m2 64 BUN/Creatinine Ratio 18.3 Glucose Level 109 H Calcium Level 8.2 L Total Bilirubin 0.3 Aspartate Amino Transf (AST/SGOT) 21 Alanine Aminotransferase (ALT/SGPT) 20 Alkaline Phosphatase 76 Troponin I High Sensitivity 22 25 Total Protein 6.2 L Albumin 2.8 L Globulin 3.4 Albumin/Globulin Ratio 0.8 L Procalcitonin < 0.05 Chemistry Comments Troponin I High Sens Percent Delta 13 Troponin I Hi Sens Absolute Change 3 EKG/XRAY/CT/US/VASC/MRI Chest X-Ray : Additional Comments Patient: CHELO BURGOS Medical Record: [id number] [facility] : 1960, Age: 64 Sex: Male Location: ER Patient Status: REG ER Service Date/Time: 11/04/241853 Ordering Physician: SOLOMON SPAIN MD Exam: CHEST,SINGLE VIEW CHEST RADIOGRAPH Indication: back pain Technique: Single frontal view of the chest was obtained COMPARISON: None FINDINGS: Lines and Tubes: None Lungs: Congestion Pleura: No effusion. No pneumothorax. Cardiomediastinal contours: Unremarkable Bones: Unremarkable IMPRESSION: Increased interstital prominence. This may represent pulmonary vascular congestion and/or viral pneumonia. Clinical correlation advised. Electronically Signed by:PAUL BOOKER MD Date & Time: 11/04/241909 Dictated by: PAUL BOOKER MD Dictation date and time: 11/04/241903 Primary Care Provider: NO PRIMARY CARE PROVIDER cc: SOLOMON SPAIN MD ~ CT : Impression Procedure: CT CTA CHEST CT ABD PELVIS W/ IV CONTRAST HISTORY: abd pain back pain pleurisy HERNIA REPAIN 1 MO AGO Comparison Study: CT CT ABDOMEN PELVIS W/ IV ORAL CONTRAST on DOS: 09/19/24, CT CT ABDOMEN PELVIS W/ ORAL CONTRAST on DOS: 08/29/24, CT CT ABDOMEN PELVIS on DOS: 08/27/24 Exam Date:11/04/2024 09:05 PM TECHNIQUE: CTA scanner volumetric data acquisition of abdomen and pelvis was obtained following intravenous administration of intravenous contrast without any reported adverse effects. Axial images were reconstructed and additional sagittal and coronal images were reformatted. Arterial phase imaging were performed. Postprocessing was also performed on a separate workstation. 3D images were performed on a dedicated workstation and reviewed for reporting. Radiation dose : CT Dose: CTDI volume is 19.31 mGy. Dose-length product is 1072.57 mGy*cm FINDINGS: Vascular: Thoracic abdominally order normal in diameter. No aneurysm or dissection. Moderate diffuse atherosclerotic plaque. Lung Bases: No acute or significant lung base finding. Normal heart size. No pleural or pericardial effusion. Liver: The liver is normal in size. No focal lesions. Normal hepatic vascular enhancement. Gallbladder and biliary Tree: Unremarkable Spleen: Unremarkable Pancreas: The pancreas is normal in appearance without focal lesions or abnormal enhancement. Adrenal Glands: Stable 2.0cm hypodense right adrenal lesion. Kidneys: Kidneys demonstrate normal symmetric enhancement without focal lesions, calculi or hydronephrosis. Bladder: Mild diffuse bladder wall thickening with a few diverticula apparent small stone in the gallbladder dependently. Bowel: The stomach is grossly normal in appearance. Small bowel and colon are normal in caliber and distribution. Normal appendix is visualized in the right lower quadrant without findings of appendicitis. Ascites: Absent Lymphadenopathy: No mesenteric, retroperitoneal or periportal lymphadenopathy. Abdominal wall and Mesentery: Post-surgical changes within the anterior abdominal wall. No organized fluid collections. Vasculature: The visualized abdominal aorta is normal in size and caliber. Abdominal and pelvic vessels demonstrate normal enhancement. Pelvic Organs: Unremarkable Musculoskeletal: No aggressive focal bony lesions, acute fractures or dislocation. IMPRESSION: 1. No evidence of acute aneurysm, dissection, or intramural hematoma. 2. No significant abnormality. Electronically Signed by:AYLEEN AUGUST MD Date & Time: 11/04/242146 Dictated by: AYLEEN AUGUST MD Dictation date and time: 11/04/242146 Primary Care Provider: NO PRIMARY CARE PROVIDER cc: SOLOMON SPAIN MD ~ Medical Decision Making Findings The patient presents with two complaints complains of abdominal pain over the last five days and then thoracic pain that he states he has had for months but has been worse over the last several days patient received a dose of Percocet for the pain the patient has a benign exam he does have we pursued reproducible back pain his workup included a nonischemic appearing EKG a nondiagnostic appearing chest x-ray and unremarkable labs due the patient's continued complaint of significant pain CTA was ordered of the chest and a CT of the abdomen and pelvis with the was obtained this showed no acute pathology. The patient was told that he could follow up as an outpatient and I would prescribe him Flexeril but I did express that I do not write for narcotics for chronic pain it does appear that this chronic pain is reproducible and musculoskeletal. Other etiologies considered but not supported by the clinical evidence include cardiac ischemia aortic dissection and pulmonary embolism. The patient remained hemodynamically stable the patient's pulse oximetry was interpreted as normal and adequate. Prior hospitalizations were reviewed. The patient's lunchroom monitor was interpreted as atrial fibrillation. The patient's EKG demonstrated a atrial fibrillation rate of 88 with a normal axis and nonspecific ST abnormalities. Departure Disposition: HOME / SELF CARE / HOMELESS Impression: Primary Impression: Back pain Qualified Codes: M54.9 - Dorsalgia, unspecified Discharge Instructions: Acute Back Pain, Adult Referrals: NO PRIMARY CARE PROVIDER (PCP) Prescriptions Cyclobenzaprine* (Cyclobenzaprine*) 10 Mg Tablet 1 TAB PO Q8H for muscle spasms for 10 Days, #30 TAB 0 Refills Prov: SOLOMON SPAIN MD 11/04/24 Signature Scribe Signature: no scribe Attestation: The note accurately reflects work and decisions made by me.Solomon Spain MD 11/05/24 03:01 SOLOMON SPAIN MD Nov 04, 2024 18:06
[2024-11-04] MEDS: normal saline 1000ML IV soln IVB ONE (18:11)
[2024-11-04 18:51] LABS: MEAN PLATELET VOLUME 7.8 FL (7.4-10.4); RED CELL DISTRIBUTION WIDTH 14.4 % (11.5-14.5)
[2024-11-04 18:55] LABS: CREATININE 1.15 MG/DL (0.60-1.10); TOTAL CARBON DIOXIDE 26.2 MMOL/L (24-32); eCRCL 67 ML/MIN; eGFR 64 ML/MIN
--- NOTE | 2024-11-04 19:05 | ELECTROCARDIOGRAPH REPORT ---
[facility] Test Date: 2024-11-04 Test Time: 19:01:20 Pat Name: CHELO BURGOS Department: [facility]ER Patient ID: [facility]-[id number] Room: Gender: M Overnight Associate: : 1960 Requested By: SOLOMON ARCEO Order Number: [id number] Reading MD: Measurements Intervals [place] Rate: 88 P: 0 MA: 0 QRS: 12 QRSD: 92 T: 30 QT: 408 QTc: 494 Interpretive Statements Atrial fibrillation Borderline low voltage, extremity leads Borderline prolonged QT interval Please click the below link to view image of tracing.
--- NOTE | 2024-11-04 19:13 | RADIOLOGY REPORT ---
CHEST RADIOGRAPH Indication: back pain Technique: Single frontal view of the chest was obtained COMPARISON: None FINDINGS: Lines and Tubes: None Lungs: Congestion Pleura: No effusion. No pneumothorax. Cardiomediastinal contours: Unremarkable Bones: Unremarkable IMPRESSION: Increased interstital prominence. This may represent pulmonary vascular congestion and/or viral pneumonia. Clinical correlation advised.
[2024-11-04] MEDS: morphine 4 MG/ML inj SYRINge IV ONE (19:42)
[2024-11-04] MEDS: ondansetron/PF 4mg/2ml inj IV ONE (19:43)
[2024-11-04] MEDS: ketorolac trometh 15mg/ml vial 15 MG/ML ML IV ONE (19:45)
[2024-11-04] MEDS ORDERED: CYCL-1 PO (19:57)
[2024-11-04 20:29] VITALS: BP 165/95; PULSE 80; TEMP 97.5; O2SAT 96
[2024-11-04 21:04] VITALS: RESP 16
--- NOTE | 2024-11-04 21:50 | RADIOLOGY REPORT ---
Procedure: CT CTA CHEST CT ABD PELVIS W/ IV CONTRAST HISTORY: abd pain back pain pleurisy HERNIA REPAIN 1 MO AGO Comparison Study: CT CT ABDOMEN PELVIS W/ IV ORAL CONTRAST on DOS: 09/19/24, CT CT ABDOMEN PELVIS W/ ORAL CONTRAST on DOS: 08/29/24, CT CT ABDOMEN PELVIS on DOS: 08/27/24 Exam Date:11/04/2024 09:05 PM TECHNIQUE: CTA scanner volumetric data acquisition of abdomen and pelvis was obtained following intravenous administration of intravenous contrast without any reported adverse effects. Axial images were reconstructed and additional sagittal and coronal images were reformatted. Arterial phase imaging were performed. Postprocessing was also performed on a separate workstation. 3D images were performed on a dedicated workstation and reviewed for reporting. Radiation dose : CT Dose: CTDI volume is 19.31 mGy. Dose-length product is 1072.57 mGy*cm FINDINGS: Vascular: Thoracic abdominally order normal in diameter. No aneurysm or dissection. Moderate diffuse atherosclerotic plaque. Lung Bases: No acute or significant lung base finding. Normal heart size. No pleural or pericardial effusion. Liver: The liver is normal in size. No focal lesions. Normal hepatic vascular enhancement. Gallbladder and biliary Tree: Unremarkable Spleen: Unremarkable Pancreas: The pancreas is normal in appearance without focal lesions or abnormal enhancement. Adrenal Glands: Stable 2.0cm hypodense right adrenal lesion. Kidneys: Kidneys demonstrate normal symmetric enhancement without focal lesions, calculi or hydronephrosis. Bladder: Mild diffuse bladder wall thickening with a few diverticula apparent small stone in the gallbladder dependently. Bowel: The stomach is grossly normal in appearance. Small bowel and colon are normal in caliber and distribution. Normal appendix is visualized in the right lower quadrant without findings of appendicitis. Ascites: Absent Lymphadenopathy: No mesenteric, retroperitoneal or periportal lymphadenopathy. Abdominal wall and Mesentery: Post-surgical changes within the anterior abdominal wall. No organized fluid collections. Vasculature: The visualized abdominal aorta is normal in size and caliber. Abdominal and pelvic vessels demonstrate normal enhancement. Pelvic Organs: Unremarkable Musculoskeletal: No aggressive focal bony lesions, acute fractures or dislocation. IMPRESSION: 1. No evidence of acute aneurysm, dissection, or intramural hematoma. 2. No significant abnormality.
== END 2024-11-04 22:16 | disposition home or self-care (01) ==
LOC: ER 17:48
DX: M54.6 Pain in thoracic spine (principal); R07.1 Chest pain on breathing; E11.9 Type 2 diabetes mellitus without complications; Z88.8 Allergy status to other drugs, medicaments and biological substances
CPT/HCPCS: 36415; 71045; 71275; 74177; 80053; 84145; 84484; 85025; 85379; 93005; 96361; 96374; 96375; 99285; J1885; J2270; J2405; J7030; Q9967